=== PATIENT | female | born 1940 ===

== ENCOUNTER 2017-02-24 14:23 | Observation (INO) ==
--- NOTE | 2017-02-24 14:54 | Emergency Department Note ---
Blessing Shen Brittany, am scribing for, and in the presence of, Pierre Odell MD 14:52. Jose R Shen Phillip K, MD, personally performed the services described in this documentation, ascribed by Isaura Funk in my presence, and it is both accurate and complete [id number] . Arrival - Arrival Chief Complaint: Syncope Stated Complaint: syncope ED Nursing Triage Note: Transfer from [facility] ER for further evaluation of syncopal episode. Reports was at dialysis, had syncopal episode while on dialysis. Awake and oriented x 3 at present, speech clear. Denies complaints. Mode of Arrival: Stretcher Limitations: No Limitations Source: Patient, EMS - History of Present Illness HPI Narrative: This is a 77 y/o [place] female, who presents to the ED for further evaluation of a syncopal episode which happened minutes [employer]. She states she was at dialysis when she had a syncopal episode. She states she does not remember what happened. Pt has no complaints of pain at this time in the ED. There are no other complaints/pain in the ED at this time. Pt has a PMHx IDMM, eye problems, THN, renal failure, renal problems, and GERD. Pt has had abdominal surgery, cholecystectomy, appendectomy, and hysterectomy. Pt denies a family medical hx. Pt denies a social hx. Onset (ago): minute(s) (inutes [employer]) Consistency: now resolved Severity: moderate Date of Last Menstrual Period: PM Allergies/Adverse Reactions: Allergies Allergy/AdvReac Type Severity Reaction Status Date / Time No Known Allergies Allergy Verified 02/24/17 14:32 Home Medications: Home Medications Medication Instructions Recorded Confirmed Type Aspirin [Ecotrin] 81 mg PO DAILY 11/02/14 08/04/15 History B-Complex with Vitamin C [Vitamin 1 each PO DAILY 11/02/14 08/04/15 History B-Complex with Vit C] Pantoprazole Tab [Protonix Tab] 40 mg PO DAILY 11/02/14 08/04/15 History Sevelamer Carbonate Tab [Renvela 1,600 mg PO TID W/MEALS 11/02/14 08/06/15 History Tab] Acetaminophen Tab [Tylenol Tab] 650 mg PO Q6H PRN #0 tablet 08/08/15 Rx Alum/Mag/Simeth Max Str Liquid 15 ml PO Q6H PRN #0 udcup 08/08/15 Rx [Mylanta Max Strength Liquid] Bisacodyl Tab [Dulcolax Tab] 5 mg PO DAILY PRN #0 tablet 08/08/15 Rx Docusate Sodium Cap [Colace Cap] 100 mg PO BID capsule 08/08/15 Rx HYDROcodone/ACETAMIN 7.5-325 1 tablet PO Q6H PRN #30 tablet 08/08/15 Rx [[place] 7.5-325] Review of System - Review of System 12 point system: reviewed and no additional remarkable complaints except as stated - Review of System Cardiovascular: Present: syncope Neurological: Absent: headache Medical,Surgical,& Family Hx - Medical History Cardio: History of: Hypertension Neurology: No history of: Seizures HEENT: History of: Eye Problem (cataract extraction right, blind left eye) Endocrine: History of: Diabetes Mellitus (NIDDM) (no medication since dialysis) Renal: History of: Dialysis, Renal Failure (jose alejandro cao, ana cristina) Comment Only: Renal Problems (av graft) Gastrointestinal: History of: GERD - Surgical History Abdominal Surgeries: Surgical HX of: Abdominal Surgery, Appendectomy, Cholecystectomy Reproductive Surgeries: Surgical HX of;: Hysterectomy - Family History Family History: Reports;: Family Diabetes - Social History Smoking Status: Never smoker Frequency of Alcohol Use: None Type of Drug Use: None Exam Vital Signs: Vital Signs Temperature 97.9 F 02/24/17 14:23 Pulse Rate 76 02/24/17 14:23 Respiratory Rate 20 02/24/17 14:23 Blood Pressure 186/71 02/24/17 14:23 O2 Sat by Pulse Oximetry 99 02/24/17 14:23 - General General appearance: alert, in no apparent distress - Head Head exam: Present: atraumatic, normocephalic, normal inspection - Eye Eye exam: Present: normal appearance, PERRL, EOMI. Absent: miosis - ENT ENT exam: Present: normal exam, mucous membranes moist - Neck Neck exam: Present: normal inspection, full ROM, trachea midline. Absent: tenderness - Chest Chest inspection: Present: normal inspection, symmetric chest wall rise. Absent : tenderness - Respiratory Respiratory exam: Present: rales (Bibasilar rales). Absent: respiratory distress - Cardiovascular Cardiovascular exam: Present: regular rate, normal rhythm, normal heart sounds. Absent: murmur, rubs, gallop, clicks, JVD - Abdominal Exam Abdominal exam: Present: soft, normal bowel sounds. Absent: distention, tenderness, guarding, rebound, rigidity - Rectal Exam Rectal exam: Present: deferred - Extremities Exam Extremities exam: Present: normal inspection, full ROM, normal capillary refill. Absent: tenderness, pedal edema, calf tenderness - Back Exam Back exam: Present: normal inspection, full ROM, rashes. Absent: tenderness, muscle spasm - Neurological Exam Neurological exam: Present: alert, oriented X3, CN II-XII intact. Absent: motor sensory deficit - Psychiatric Psychiatric exam: Present: normal affect, normal mood. Absent: depressed, agitated, anxious, flat affect, manic - Skin Skin exam: Present: warm, dry, intact, normal color. Absent: rash, cyanosis, diaphoresis Course Course Narrative: Patient discussed with the hospitalist. Results - Labs Lab Results: I have reviewed the patients labs (Labs reviewed from [facility]) - EKG EKG results: interpreted by JOSE, sinus rhythm (Right bundle branch block at [facility]) - Diagnostic Findings Procedure: CT: report reviewed by me (CT head scan at [facility] and showed no acute intracranial abnormality.) Critical Care Time Critical Care Time: No Disposition Clinical Impression: Syncope, Confusion, End stage renal disease Case discussed with: patient Disposition: Still a Patient Condition: Guarded Additional Instructions: Admit to the hospitalist for monitoring
[2017-02-24] MEDS ORDERED: ACETAMINOPHEN 325 MG TABLET PO PRN (15:21)
[2017-02-24] MEDS ORDERED: ONDANSETRON 4 MG/2 ML VIAL IV PRN (15:21)
--- NOTE | 2017-02-24 15:38 | Hospitalist History & Physical ---
<Ninoska Light - Last Filed: 02/24/17 15:24> Assessment and Plan - Time spent with patient Time spent with patient: Greater than 30 minutes (1) Syncope Status: Acute Assessment and plan: Admit 02/24/17 - monitored bed Echo Carotid dopplers consult renal repeat a.m. labs check BNP in a.m Will discuss with Dr Blanc for further recommendations with care. Current Visit: Yes (2) End stage renal disease Status: Chronic Assessment and plan: 02/24/17 consult Renal (Dr Tom) Current Visit: Yes (3) Hemodialysis access, AV graft Status: Acute Assessment and plan: 02/24/17 Left arm - functioning well. Current Visit: No (4) Diabetes mellitus Status: Chronic Assessment and plan: 02/24/17 Diet controlled - no diabetic medications. check A1c repeat A.M. labs Current Visit: No Qualifiers: Diabetes mellitus type: type 2 Diabetes mellitus complication status: with kidney complications Chronic kidney disease stage: on chronic dialysis Qualified Code(s): E11.22 - Type 2 diabetes mellitus with diabetic chronic kidney disease History of Present Illness Chief complaint: syncope History of present illness: Ms. Brasher is a 77 year old [place] female w/PMHx of chronic renal disease with hemodialysis, Hypertension presented to the ED as a transfer from [facility] ER for further evaluation of syncope while on dialysis and "blacked out" for a few seconds to minutes, she was unsure. She denies chest pain, fever, chills, cough, nausea, or vomiting. She reports this is the second time she has had this happen to her within the past year to year and half. She reports use to take something for diabetes but was taken off and is now diet controlled. She denies smoking, alcohol or drug use. 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 Home medications will be reviewed and reconciliation will follow. Home Medications Medication Instructions Recorded Confirmed Type Pantoprazole Tab [Protonix Tab] 40 mg PO DAILY PRN 11/02/14 02/24/17 History Sevelamer Carbonate Tab [Renvela 1,600 mg PO TID W/MEALS 05/21/15 09/12/17 History Tab] Fosinopril [Monopril] 10 mg PO DAILY 02/24/17 02/24/17 History amLODIPine [Norvasc] 10 mg PO DAILY 02/24/17 02/24/17 History Allergies Allergy/AdvReac Type Severity Reaction Status Date / Time No Known Allergies Allergy Verified 02/24/17 14:32 Medical,Surgical,& Family Hx - Medical History Cardio: History of: Hypertension Neurology: No history of: Seizures HEENT: History of: Eye Problem (cataract extraction right, blind left eye) Endocrine: History of: Diabetes Mellitus (NIDDM) (no medication since dialysis) Renal: History of: Dialysis, Renal Failure (tues, thur, sat) Comment Only: Renal Problems (av graft) Gastrointestinal: History of: GERD - Surgical History Abdominal Surgeries: Surgical HX of: Abdominal Surgery, Appendectomy, Cholecystectomy Reproductive Surgeries: Surgical HX of;: Hysterectomy - Family History Family History: Reports;: Family Diabetes - Social History Smoking Status: Never smoker Frequency of Alcohol Use: None Type of Drug Use: None Lives With:: Children (Her son and grandson live with her) Functional capacity: uses cane/walker 12 point system: reviewed and no additional remarkable complaints except as stated - Constitutional Constitutional: Absent: chills, fever(s), frequent falls - Cardiovascular Cardiovascular: Absent: chest pain at rest, chest pain with activity, dyspnea, dyspnea on exertion - Respiratory Respiratory: Absent: cough, dyspnea Exam - Constitutional Vitals: Period Temp Pulse Resp BP Sys/Obando Pulse Ox Last 24 Hr 97.9 F 76 20 186/71 99 General appearance: normal weight, no acute distress - Head Head exam: Present: normal inspection - Eye Eye exam: Present: EOMI Pupils: Present: LACY - Neck Neck exam: Present: normal inspection - Respiratory Respiratory exam: Present: clear to auscultation bilaterally. Absent: rhonchi, stridor, wheezes - Cardiovascular Cardiovascular exam: Present: regular rate and rhythm - GI/Abdominal GI/Abdominal exam: Present: normal bowel sounds, soft. Absent: tenderness, rebound - Extremities Exam Extremities exam: Present: normal inspection, full ROM, edema (trace to 1+) - Neurological Exam Neurological exam: Present: alert, oriented X3, CN II-XII intact - Psychiatric Psychiatric exam: Present: normal affect, normal mood. Absent: agitated, anxious - Skin Skin exam: Present: normal color, warm, dry Results - Labs Lab Results: I have reviewed the past 24 hour labs Labs: Labs and CT of head performed at [facility] ER and was scanned into system under reports: HEAD CT Findings: Moderate area of malacia/gliosis in right parietal lobe is most compatible with old infarction; prominent low density in the bilateral periventricular white matter which may represent chronic small vessel ischemic disease; there are lacunar infarctions in the basal ganglia which may be old; the possibility of superimposed acute infarctions cannot be excluded; probable prominent chronic ischemic changes. LABS: BUN 29 Creatinine 3.7; K 3.6, Troponin negative. WBC 7.4, H&H 12.2 & 37.6. EKG: NSR. <Abel Blanc - Last Filed: 02/25/17 07:08> History of Present Illness History of present illness: Ms. Brasher is a 77 year old female who is being admitted to the hospital after experiencing an episode of syncope during hemodialysis. I have interviewed and examined the patient and reviewed all the available laboratory and radiographic test results. I agree with the assessment and plans of Ninoska Light TRAIN CONTROL ELECTRONIC TECHNICIAN. The patient will be admitted to the hospital for further evaluation and treatment. Neurology has been consulted. Exam - Constitutional Vitals: Period Temp Pulse Resp BP Sys/Obando Pulse Ox Last 24 Hr 97.9 F-99.5 F 63-81 14-20 152-197/66-77 95-100 Results - Labs CBC & BMP: 02/25/17 02:58 02/25/17 02:58
--- NOTE | 2017-02-24 16:52 | Ultrasound Report ---
Exam:US carotid duplex BI Date:02/24/2017 3:52 PM Indication: Syncope Color Doppler, wave form analysis, and grayscale analysis of the cervical carotid arteries was performed. There is mild partially calcified plaque in the left carotid bulb. Waveform analysis shows proper directional flow of the cervical carotid arteries. There is antegrade flow in either vertebral artery. There is no increased peak systolic velocity in the common or internal carotid arteries bilaterally. Impression: There is 0-15% diameter reduction narrowing of the right and 16-49% diameter reduction narrowing of the left internal carotid artery using indirect NASCET criteria. No hemodynamically significant internal carotid artery stenosis is identified. Right Side Flow velocities centimeters per second Common carotid artery:46.8 Proximal ICA:37.7 Distal ICA:83.6 External carotid artery:139.2 Vertebral artery:62.5 ICA/CCA ratio:1.8 Measurements in millimeters Distal ICA: 4.1 Left SIde Flow velocities centimeters per second Common carotid artery 57.7 Proximal ICA:41.3 Distal ICA:43.9 External carotid artery:77.5 Vertebral artery:33.1 ICA/CCA ratio:0.8 Measurements in millimeters Distal ICA: 4.5 Today studies were performed utilizing indirect NASCET criteria PROCEDURE INTERPRETED AT [facility] DEPARTMENT OF RADIOLOGY Final Report Signed by: Dr. Vivian Guerrero
--- NOTE | 2017-02-24 21:00 | ECHO Report ---
Shannan Brasher Exam Date: 02/24/2017 16:04 Referring Physician: Technologist: monie Smith ARDMS, RVT Age: 77 Ht (in): 62 Wt (lb): 99 Gender: F Exam Location: [facility] Echo Indications: Syncope and collapse, End stage renal disease, DM, Hemodialysis AV graft BP: 161 / 71 HR: 66 Rhythm: Sinus Technical Quality: IMPRESSIONS Normal left ventricular cavity size. Mild concentric left ventricular hypertrophy. Left ventricular ejection fraction is estimated at 60%. Grade 2 diastolic dysfunction. Mild left atrial enlargement. Mildly thickened mitral valve, with trace insufficiency, without stenosis. Mild aortic valve sclerosis, without stenosis, with trace regurgitation. MEASUREMENTS (Male / Female) Normal Values 2D ECHO LV Diastolic Diameter PLAX 4.7 cm 4.2 - 5.9 / 3.9 - 5.3 cm LV Systolic Diameter PLAX 3.1 cm LV Fractional Shortening PLAX 32.4 % IVS Diastolic Thickness 1.0 cm 0.6 - 1.0 / 0.6 - 0.9 cm LVPW Diastolic Thickness 1.3 cm 0.6 - 1.0 / 0.6 - 0.9 cm RV Internal Dim ED PLAX 2.2 cm Aortic Root Diameter 2.1 cm LA Systolic Diameter LX 3.6 cm 3.0 - 4.0 / 2.7 - 3.8 cm FINDINGS Left Ventricle Normal left ventricular cavity size. Mild concentric left ventricular hypertrophy. Left ventricular ejection fraction is estimated at 60%. Grade 2 diastolic dysfunction. Right Ventricle The right ventricle is normal in size and function. Right Atrium The right atrium is normal in size. Left Atrium The left atrium was mildly dilated. Mitral Valve Mildly thickened mitral valve, with trace insufficiency, without stenosis. Aortic Valve Mild aortic valve sclerosis, without stenosis, with trace regurgitation. Tricuspid Valve Morphologically normal tricuspid valve without significant stenosis or regurgitation. Pulmonary artery systolic pressure is normal. Pulmonic Valve Morphologically normal pulmonic valve without significant stenosis. There is no pulmonic regurgitation. Pericardium Normal pericardium without effusion. Aorta Normal ascending aorta dimension. Garrett Castro (Electronically Signed) Final Date: 24 February 2017 20:59
[2017-02-25 03:56] LABS: Basophils # 0.1 10*3/uL (0.0-0.2); Basophils % 1.2 % (0.0-0.8); Eosinophils # 0.2 10*3/uL (0.0-0.87); Eosinophils % 5.7 % (0.00-10.9); Hematocrit 30.8 VOL% (35.7-47.0); Hemoglobin 10.3 GM/DL (12.0-16.0); Lymphocytes # 1.3 10*3/uL (1.4-4.0); Lymphocytes % 30.2 % (21.3-54.2); Mean Corpuscular HGB Conc 33.4 GM/DL (32-36); Mean Corpuscular Hemoglobin 32 PG (27-34); Mean Corpuscular Volume 96.6 FL (87-102); Mean Platelet Volume 10.7 FL (9.6-12.0); Monocytes # 0.4 10*3/uL (0.11-0.8); Monocytes % 9.3 % (1.7-12.7); Neutrophils # 2.3 10*3/uL (1.4-7.4); Neutrophils % 53.6 % (38.7-73.9); Platelet Count 121 T/CUMM (130-400); Red Blood Count 3.19 MC/CUMM (3.8-5.5); Red Cell Distribution Width 14.5 % (9.3-17.3); White Blood Count 4.2 T/CUMM (4-12)
[2017-02-25 04:40] LABS: Calcium 8.4 MG/DL (8.5-10.1); Magnesium 2.2 MG/DL (1.8-2.4)
[2017-02-25 05:18] LABS: Risk Ratio 2.26; VLDL CHOLESTEROL 13.6 MG/DL
[2017-02-25] MEDS: PANTOPRAZOLE 40 MG TABLET PO SCH (10:14)
--- NOTE | 2017-02-25 11:54 | Hospitalist Progress Note ---
Assessment and Plan (1) ESRD on hemodialysis Status: Acute Assessment and plan: She continues her regularly scheduled hemodialysis under the management of nephrology. Current Visit: Yes (2) Syncope Status: Acute Assessment and plan: Telemetry monitoring is demonstrated no arrhythmias. She is scheduled to undergo an MRI of the head, carotid duplex Doppler exam, and echocardiogram today. Current Visit: Yes Hospitalist: Subjective Interval history: Patient is doing well today. She has experienced no recurrent episodes of loss of consciousness. She is not experiencing chest pain or shortness of breath. She is being seen in consultation by nephrology for management of her hemodialysis. Exam - Constitutional Vitals: Period Temp Pulse Resp BP Sys/Obando Pulse Ox Last 24 Hr 97.9 F-99.5 F 63-81 14-20 152-197/66-77 94-100 General appearance: no acute distress - Head Head exam: Present: normal inspection - Neck Neck exam: Present: normal inspection - Respiratory Respiratory exam: Present: clear to auscultation bilaterally - Cardiovascular Cardiovascular exam: Present: regular rate and rhythm - GI/Abdominal GI/Abdominal exam: Present: normal bowel sounds, soft, other (Nontender with no palpable masses or hepatosplenomegaly.) - Extremities Exam Extremities exam: Present: normal inspection - Skin Skin exam: Present: normal color, warm, intact Results - Labs CBC & BMP: 02/25/17 02:58 02/25/17 02:58
[2017-02-25] MEDS ORDERED: hydrALAZINE 20 MG/1 ML VIAL IV PRN (12:57)
[2017-02-25] MEDS ORDERED: PANTOPRAZOLE 40 MG TABLET PO PRN (12:58)
--- NOTE | 2017-02-25 13:31 | Nephrology Consult Note ---
History of Present Illness Chief complaint: Admitted for syncope on dialysis. Referred for ESRD on [facility]. History of present illness: Ms. Brasher is a 77 year old female admitted for syncope on dialysis. This is the third time this has happened per pt. She states she is back to her baseline now. Denies SOB/pain. She has ESRD on chronic dialysis TTSa via left forearm graft at [facility]. EDW 42.5kg. Home Medications Medication Instructions Recorded Confirmed Type Pantoprazole Tab [Protonix Tab] 40 mg PO DAILY PRN 11/02/14 02/24/17 History Sevelamer Carbonate Tab [Renvela 1,600 mg PO TID W/MEALS 11/02/14 02/24/17 History Tab] Fosinopril [Monopril] 10 mg PO DAILY 02/24/17 02/24/17 History amLODIPine [Norvasc] 10 mg PO DAILY 02/24/17 02/24/17 History Allergies Allergy/AdvReac Type Severity Reaction Status Date / Time No Known Allergies Allergy Verified 02/24/17 14:32 Medical,Surgical,& Family Hx - Medical History Cardio: History of: Hypertension Neurology: No history of: Seizures HEENT: History of: Eye Problem (cataract extraction right, blind left eye) Endocrine: History of: Diabetes Mellitus (NIDDM) (no medication since dialysis) Renal: History of: Dialysis, Renal Failure (kiley, jose alejandro, sat) Comment Only: Renal Problems (left av graft) Gastrointestinal: History of: GERD - Surgical History Abdominal Surgeries: Surgical HX of: Abdominal Surgery, Appendectomy, Cholecystectomy Reproductive Surgeries: Surgical HX of;: Hysterectomy - Family History Family History: Reports;: Family Diabetes - Social History Smoking Status: Never smoker Frequency of Alcohol Use: None Type of Drug Use: None Exam - Vital Signs Vital signs: Period Temp Pulse Resp BP Sys/Obando Pulse Ox Last 24 Hr 96.4 F-99.5 F 63-81 14-20 152-197/66-84 92-100 - General Appearance General appearance: well-developed, chronically ill EENT: ATNC, PERRL Neck: no JVD, no thyromegaly Respiratory: no kyphosis, clear Cardiology: no murmurs, no rub, no edema Gastrointestinal: normoactive bowel sounds, no tenderness Integumentary: no rash, warm and dry Neurologic: no focal deficit, no asterixis, alert and oriented x3 Musculoskeletal: no deformities, no erythema Psychiatric: mood/affect appropriate, cooperative Results - Labs CBC & BMP: 02/25/17 02:58 02/25/17 02:58 Assessment and Plan (1) ESRD on hemodialysis Problem details: No acute indication for HD at this time. Status: Acute Assessment and plan: Next scheduled routine CHD tomorrow. Current Visit: Yes
--- NOTE | 2017-02-25 15:47 | Magnetic Resonance Report ---
MRI brain without contrast Indication: Cerebrovascular occlusion Comparison: None available Technique: Axial sagittal and coronal imaging of the brain is performed without contrast. T1, T2, FLAIR and diffusion weighted sequences are performed. Findings: No evidence of restricted diffusion seen. No evidence of intracranial hemorrhage, mass, mass effect or midline shift is seen. There is moderate to severe diffuse cerebral atrophy. There are areas of white matter T2 signal hyperintensity in both cerebral hemispheres periventricular and subcortical in location. This likely represents a chronic microvascular disease. More focal volume loss is seen in the medial right occipital lobe suggesting previous infarct. Remaining brain parenchyma has normal signal and differentiation. The ventricles and cisterns are appropriate in caliber. Posterior fossa, mid brain and pituitary gland appear within normal limits. No evidence of cranial or skull base abnormality seen. Impression: No evidence of acute infarct or other acute process demonstrated PROCEDURE INTERPRETED AT [facility] DEPARTMENT OF RADIOLOGY Final Report Signed by: Dr. Ian Newman
--- NOTE | 2017-02-25 17:05 | Neurology Consult Note ---
History of Present Illness History of present illness: 77 years old lady with past medical history significant for ESRD on hemodialysis, diabetes admitted the hospital after she had a syncopal episode. Patient reported that she has has had so far 3 episodes where she passed out during dialysis. She was out for less than a minute and regained consciousness. She reported that she feels like her body is cramping up. No generalized tonic-clonic activity reported. No tongue biting or urinary incontinence reported. MRI of the brain is unremarkable. Home Medications Medication Instructions Recorded Confirmed Type Pantoprazole Tab [Protonix Tab] 40 mg PO DAILY PRN 11/02/14 02/24/17 History Sevelamer Carbonate Tab [Renvela 1,600 mg PO TID W/MEALS 11/02/14 02/24/17 History Tab] Fosinopril [Monopril] 10 mg PO DAILY 02/24/17 02/24/17 History amLODIPine [Norvasc] 10 mg PO DAILY 02/24/17 02/24/17 History Allergies Allergy/AdvReac Type Severity Reaction Status Date / Time No Known Allergies Allergy Verified 02/24/17 14:32 12 point system: reviewed and no additional remarkable complaints except as stated Medical,Surgical,& Family Hx - Medical History Cardio: History of: Hypertension Neurology: No history of: Seizures HEENT: History of: Eye Problem (cataract extraction right, blind left eye) Endocrine: History of: Diabetes Mellitus (NIDDM) (no medication since dialysis) Renal: History of: Dialysis, Renal Failure (tues, thur, sat) Comment Only: Renal Problems (left av graft) Gastrointestinal: History of: GERD - Surgical History Abdominal Surgeries: Surgical HX of: Abdominal Surgery, Appendectomy, Cholecystectomy Reproductive Surgeries: Surgical HX of;: Hysterectomy - Family History Family History: Reports;: Family Diabetes - Social History Smoking Status: Never smoker Frequency of Alcohol Use: None Type of Drug Use: None Exam - Constitutional Vitals: Period Temp Pulse Resp BP Sys/Obando Pulse Ox Last 24 Hr 96.4 F-99.5 F 63-81 16-20 152-188/66-84 92-99 Exam: GENERAL: Patient is in no acute distress. NECK: Neck is supple. There is no JVD. No carotid bruits present. No thyroid masses. CVS: First and second heart sounds are normal. There is no S3 present. Regular rate and rhythm. RESPIRATORY: Lungs are clear to auscultation without any rales or rhonchi. ABDOMEN: Soft and non-tender. Bowel sounds are present. There is no hepatosplenomegaly. EXT: There is no palpable edema. Peripheral pulses are present. Skin: No rashes Central Nervous system: General: Alert, awake and Oriented x 3 Speech: Fluent Comprehension: Intact and normal Facial expressions: Normal Cranial Nerves: CN1/Olfactory: Normal CN II/ Optic: Normal, Visual Lees unreliable CN III, and : LACY & EOMI CN V: Normal & intact CN VII: face is symmetric CNVIII: Normal CN XI/X/XI/XII: Intact and Normal Motor: Bulk and Tone is normal. Strength in the right 4/5 Strength in the left 4/5 Sensory: Decreased for all the modalities of PP, LT and temp sense in the stockings to Reflexes: 1+ and symmetrical Cerebellar function: Normal finger to nose and heel to hooks testing. Toes: Equivocal Gait: Not tested at this Results - Labs CBC & BMP: 02/25/17 02:58 02/25/17 02:58 Assessment and Plan (1) Syncope Status: Acute Assessment and plan: This could very well be due to hemodialysis induced hypotension leading to syncope. Other differential would include seizure related to uremia. EEG No AEDs indicated at this time Thank you for the consult Current Visit: Yes
[2017-02-25] MEDS: SEVELAMER CARBONATE 800 MG TABLET PO SCH (17:56)
[2017-02-26 07:58] VITALS: BP 144/95
[2017-02-26] MEDS: PANTOPRAZOLE 40 MG TABLET PO SCH (08:52)
[2017-02-26] MEDS: SEVELAMER CARBONATE 800 MG TABLET PO SCH ×2 (08:52→12:31)
[2017-02-26] MEDS ORDERED: FOSINOPRIL 10 MG TABLET PO SCH (09:00)
[2017-02-26] MEDS ORDERED: amLODIPine 10 MG TABLET PO SCH (09:00)
--- NOTE | 2017-02-26 09:44 | Dialysis Note ---
Dialysis Note - Dialysis Note Patient seen on dialysis. She is tolerating procedure. Blood pressure 144/95. Cardiovascular regular rate. Lungs clear to auscultation.
--- NOTE | 2017-02-26 10:13 | Discharge Summary ---
Hospital Course - Hospital Course Hospital Course: Ms. Brasher is a 77 year old [place] female w/PMHx of chronic renal disease with hemodialysis, Hypertension presented to the ED as a transfer from [facility] ER for further evaluation of syncope while on dialysis and "blacked out" for a few seconds to minutes, she was unsure. She denies chest pain, fever, chills, cough, nausea, or vomiting. She reports this is the second time she has had this happen to her within the past year to year and half. She reports use to take something for diabetes but was taken off and is now diet controlled. Patient was admitted to the hospital the diagnosis of syncope. She underwent an MRI of the brain demonstrating no acute abnormalities. She underwent a carotid duplex Doppler examination demonstrating no significant obstructions. She underwent an echocardiogram demonstrating normal left ventricular systolic function with LVEF 60%. Telemetry demonstrated sinus rhythm with no arrhythmias. She was seen in consultation by Dr. Solis of neurology. It was his opinion there is syncope was due to hemodialysis associated hypotension. She did well in the hospital experiencing no recurrent such events. At the time of her discharge she was comfortable with no complaints. Diagnosis - Discharge Diagnosis (1) ESRD on hemodialysis Status: Chronic (2) Syncope Status: Acute Discharge Plan - Discharge Data Disposition: Disch To Home/Self Care Condition at Discharge: Stable Discharge Diet: advance to your usual diet Activity: resume usual activities as tolerated - Discharge Medications Continue Pantoprazole Tab [Protonix Tab] 40 mg PO DAILY PRN PRN Reason: Reflux Sevelamer Carbonate Tab [Renvela Tab] 1,600 mg PO TID W/MEALS amLODIPine [Norvasc] 10 mg PO DAILY Fosinopril [Monopril] 10 mg PO DAILY - Follow Up or Referral - Forms/Instructions Exam - Constitutional Vitals: Period Temp Pulse Resp BP Sys/Obando Pulse Ox Last 24 Hr 96.4 F-99.1 F 66-78 16-20 144-188/63-95 92-95 Discharge Results Procedures and tests throughout hospitalization: Pending Orders 02/26/17 04:00 NE EEG adult awake/drowsy IN AM DS: Provider Date of admission: 02/24/17 14:58 Primary care physician: Edi Henning MD Attending physician on admission: Abel Blanc Consults: 02/24/17 15:23 Consult to Case Mgmt/Social Srvs [CONS] Routine Reason for Case Mgmt/Social Srvs: Discharge Planning 02/24/17 16:18 Consult to Physician [CONS] Routine Comment: Consulting Provider: Mushtaq Solis When should Consulting Provider be notified: Now Person Notified: Ileana Date Notified: 02/25/17 Time Notified: 12:00 Consult Notification Comment: 02/24/17 16:20 Consult to Physician [CONS] Routine Comment: Consulting Provider: Nikita Bob When should Consulting Provider be notified: Now Person Notified: Kam Date Notified: 02/25/17 Time Notified: 08:45 Consult Notification Comment: patient of Dr Tom, chronic hemodialysis was at dialysis today, when she had a syncopal episode classification clerk to see pt Discharging clinician: Abel Blanc
== END 2017-02-26 16:15 | disposition home or self-care (01) ==
LOC: EDBD → EDUNIT# → N.EDINP 14:23 → N.ED 14:23 → SUATTDRO 14:58 → N.EDINP 17:43 → N.TELEN 17:44

== ENCOUNTER 2017-03-15 19:17 | Inpatient (IN) ==
--- NOTE | 2017-03-15 20:27 | Emergency Department Note ---
Arrival - Arrival Chief Complaint: Extremity Problem ED Nursing Triage Note: Pt arrives via ems from [facility] for ortho eval. Pt fell at home and was seen at [facility]. Report given was that pt has a Left pubic ramis fracture. At time of triage pt denies pain unless moving left ext. Mode of Arrival: Stretcher Time Seen by Provider: 03/15/17 20:15 - History of Present Illness HPI Narrative: This is a 77-year-old female of [facility] descent with a history of chronic renal failure on hemodialysis Thursday, hypertension who was transferred from [facility] February 26, 2017 for syncope where a MRI scan of the brain showed no abnormalities, carotid duplex Doppler study was normal, echocardiogram and revealed left ventricular ejection fraction of 60%, no arrhythmias were found,, the patient was evaluated by neurology and was discharged with the theory that her syncope was due to a hypotensive event related to hemodialysis. She returns today from [facility] after falling and injuring her pelvis. X-ray revealed an acute mildly lead displaced fracture of the left inferior pubic ramus and possibly of the left superior pubic ramus. Date of Last Menstrual Period: hyster Allergies/Adverse Reactions: Allergies Allergy/AdvReac Type Severity Reaction Status Date / Time No Known Allergies Allergy Verified 02/24/17 14:32 Home Medications: Home Medications Medication Instructions Recorded Confirmed Type Pantoprazole Tab [Protonix Tab] 40 mg PO DAILY PRN 11/02/14 03/15/17 History amLODIPine [Norvasc] 10 mg PO DAILY 02/24/17 03/15/17 History Fosinopril [Monopril] 10 mg PO DAILY 03/15/17 03/15/17 History Latanoprost 0.005% Oph Soln 1 drop RIGHT EYE BEDTIME 03/15/17 03/15/17 History [Xalatan 0.005% Oph Soln] Sevelamer Carbonate Tab [Renvela 1,600 mg PO TID W/MEALS 03/15/17 03/15/17 History Tab] Sevelamer Carbonate Tab [Renvela 800 mg PO WITH SNACKS 03/15/17 03/15/17 History Tab] Review of System - Review of System Constitutional: Absent: fever, night sweats, weakness Eyes: Absent: redness Head/Ears/Nose/Throat: Absent: epistaxis, nasal drainage Respiratory: Absent: respiratory distress, wheezing Cardiovascular: Absent: dyspnea on exertion, orthopnea Gastrointestinal: Absent: diarrhea, constipation, hematemesis, melena Genitourinary female: Absent: dysuria, urgency Musculoskeletal: Absent: joint swelling, lower back pain, neck pain Skin: Absent: change in color, change in hair/nails, pruritus Neurological: Absent: numbness, paresthesias, confusion Psychiatric: Absent: anxiety, depression Endocrine: Absent: heat intolerance, polydipsia, polyuria Hematological/Lymphatic: Absent: easy bruising, lymphadenopathy Allergic/Immunologic: Absent: urticaria, itchy eyes Medical,Surgical,& Family Hx - Medical History Cardio: History of: Hypertension Neurology: No history of: Seizures HEENT: History of: Eye Problem (cataract extraction right, blind left eye) Endocrine: History of: Diabetes Mellitus (NIDDM) (no medication since dialysis) Renal: History of: Dialysis, Renal Failure (tues, thur, sat) Comment Only: Renal Problems (left av graft) Gastrointestinal: History of: GERD - Surgical History Abdominal Surgeries: Surgical HX of: Abdominal Surgery, Appendectomy, Cholecystectomy Reproductive Surgeries: Surgical HX of;: Hysterectomy - Family History Family History: Reports;: Family Diabetes - Social History Smoking Status: Never smoker Frequency of Alcohol Use: None Type of Drug Use: None Exam Vital Signs: Vital Signs Temperature 98.7 F 03/15/17 19:17 Pulse Rate 86 03/15/17 19:17 Respiratory Rate 16 03/15/17 19:17 Blood Pressure 176/75 03/15/17 19:17 O2 Sat by Pulse Oximetry 95 03/15/17 19:17 - Head Head exam: Present: atraumatic, normocephalic - Eye Eye exam: Present: PERRL, EOMI - ENT ENT exam: Present: normal exam, normal oropharynx - Neck Neck exam: Present: normal inspection, full ROM - Chest Chest inspection: Present: normal inspection - Respiratory Respiratory exam: Present: normal lung sounds bilaterally - Cardiovascular Cardiovascular exam: Present: regular rate, normal rhythm - Abdominal Exam Abdominal exam: Present: soft, normal bowel sounds - Extremities Exam Extremities exam: Present: other (Tenderness in the pelvic area on movement of the left hip) - Back Exam Back exam: Present: normal inspection - Neurological Exam Neurological exam: Present: alert, oriented X3, CN II-XII intact - Psychiatric Psychiatric exam: Present: normal affect, normal mood - Skin Skin exam: Present: warm, dry, intact Course Course Narrative: The case was discussed with the hospitalist who agreed to admit the patient for placement in the rehab facility to help with ambulation and to receive dialysis during the time that they are helping her to learn to walk with her inferior pubic ramus fracture on the left side. Disposition Clinical Impression: Fracture of left inferior pubic ramus, Ambulatory dysfunction, Chronic renal failure Disposition: Still a Patient
[2017-03-15] MEDS ORDERED: LABETALOL 20 MG/4 ML SYRINGE IV STA (20:51)
[2017-03-15] MEDS ORDERED: MORPHINE 2 MG/1 ML SYRINGE IV PRN (21:18)
[2017-03-15] MEDS ORDERED: DEXTROSE 50% 25 GM/50 ML SYRINGE IV PRN (21:18)
[2017-03-15] MEDS ORDERED: GLUCAGON 1 MG VIAL IM PRN (21:18)
[2017-03-15] MEDS ORDERED: ONDANSETRON 4 MG/2 ML VIAL IV PRN (21:18)
[2017-03-15] MEDS ORDERED: ACETAMINOPHEN 325 MG TABLET PO PRN (21:18)
[2017-03-15] MEDS ORDERED: SEVELAMER CARBONATE 800 MG TABLET PO SCH (22:00)
--- NOTE | 2017-03-15 22:10 | Hospitalist History & Physical ---
Assessment and Plan - Time spent with patient Time spent with patient: Greater than 30 minutes (1) Pelvic fracture Status: Acute Assessment and plan: Admit to hospitalist services. Consult PT, Nephrology, and Orthopedics. Pain control with Tylenol, [place], and Morphine PRN. Fall Precautions. Current Visit: Yes (2) Hypertension Status: Acute Assessment and plan: Continue home medications. BMP in a.m. Monitor. Current Visit: Yes (3) ESRD on hemodialysis Problem details: No acute indication for HD at this time. Status: Chronic Assessment and plan: Dialyzes Thursday, , and Thursday. Continue home medications. Consult Nephrology. Current Visit: No (4) Diabetes mellitus Status: Chronic Assessment and plan: Has not needed medications since starting dialysis. Controls with diet only. ADA diet ordered. Accuchecks and SSI ACHS. A1c in a.m. Current Visit: No Qualifiers: Diabetes mellitus type: type 2 Diabetes mellitus complication status: with kidney complications Chronic kidney disease stage: on chronic dialysis Qualified Code(s): E11.22 - Type 2 diabetes mellitus with diabetic chronic kidney disease (5) DVT prophylaxis Status: Acute Assessment and plan: Bilateral SCDs due to ESRD and thrombocytopenia. Current Visit: Yes History of Present Illness Chief complaint: Pelvic Fracture History of present illness: Ms. Brasher is a 77 year old female with a past medical history of ESRD on hemodialysis, hypertension, diabetes, and anemia who was transferred to the ED of [facility] from [place] with complaints of a fall that occurred around 10:00 today in which she sustained a pelvic fracture. CT obtained at [place] showed an "acute mildly displaced fracture of the left inferior pubic ramus and questionable nondisplaced acute fracture of the left superior pubic ramus." Ms. Brasher reports that she was standing in her kitchen when her legs felt weak, causing her to fall. After the fall, she was unable to get up or walk. She reports that she has had similar episodes of leg weakness causing falls several times before. She reports that she dialyzes on Thursday, , and Thursday. Significant labs performed at [place] included H/H 11.5/35.8, MCV 98.9, Platelet 127, and Creatinine 5.6. Currently, she is Hospitalist services were consulted, and the patient will be admitted for further evaluation and treatment. Home medications were reviewed and reconciled. This patient is a full code. Home Medications Medication Instructions Recorded Confirmed Type Pantoprazole Tab [Protonix Tab] 40 mg PO DAILY PRN 11/02/14 03/15/17 History amLODIPine [Norvasc] 10 mg PO DAILY 02/24/17 03/15/17 History Fosinopril [Monopril] 10 mg PO DAILY 03/15/17 03/15/17 History Latanoprost 0.005% Oph Soln 1 drop RIGHT EYE BEDTIME 03/15/17 03/15/17 History [Xalatan 0.005% Oph Soln] Sevelamer Carbonate Tab [Renvela 1,600 mg PO TID W/MEALS 03/15/17 03/15/17 History Tab] Sevelamer Carbonate Tab [Renvela 800 mg PO WITH SNACKS 03/15/17 03/15/17 History Tab] Allergies Allergy/AdvReac Type Severity Reaction Status Date / Time No Known Allergies Allergy Verified 02/24/17 14:32 Medical,Surgical,& Family Hx - Medical History Cardio: History of: Hypertension HEENT: History of: Eye Problem (cataract extraction right, blind left eye) Endocrine: History of: Diabetes Mellitus (NIDDM) (no medication since dialysis) Renal: History of: Dialysis, Renal Failure (kiley, jose alejandro, ana cristina) Comment Only: Renal Problems (left av graft) Gastrointestinal: History of: GERD - Surgical History Abdominal Surgeries: Surgical HX of: Abdominal Surgery, Appendectomy, Cholecystectomy Reproductive Surgeries: Surgical HX of;: Section, Hysterectomy - Family History Family History: Reports;: Family Diabetes - Social History Smoking Status: Never smoker Have you smoked in the last 12 months: No Frequency of Alcohol Use: None Type of Drug Use: None Marital Status: Lives With:: Children (Son and Grandson) Functional capacity: uses cane/walker (uses a cane outside the house; nothing inside the house) 12 point system: reviewed and no additional remarkable complaints except as stated - Constitutional Constitutional: Absent: chills, fever(s), headache(s), malaise, weakness - EENT Eyes: Absent: blurry vision, diplopia, loss of vision Ears: Absent: decreased hearing, ear discharge, ear pain Nose, mouth and throat: Absent: epistaxis, headache(s), nasal congestion, sore throat - Cardiovascular Cardiovascular: Absent: chest pain at rest, chest pain with activity, dyspnea, edema, orthopnea, palpitations - Respiratory Respiratory: Absent: cough, dyspnea, wheezing - Gastrointestinal Gastrointestinal: Absent: abdominal pain, constipation, diarrhea, nausea, vomiting - Genitourinary Genitourinary: Absent: dysuria, flank pain, urinary frequency - Musculoskeletal Musculoskeletal: Present: muscle weakness, other (pelvic pain with movement). Absent: arthralgias, joint swelling, myalgias - Neurological Neurological: Absent: confusion, dizziness, numbness, paresthesias, syncope - Psychiatric Psychiatric: Absent: anxiety, depression - Endocrine Endocrine: Absent: cold intolerance, polydipsia, polyphagia, polyuria - Hematologic/Lymphatic Hematologic/Lymphatic: Absent: easy bleeding, easy bruising Exam - Constitutional Vitals: Period Temp Pulse Resp BP Sys/Obando Pulse Ox Last 24 Hr 98.7 F-98.7 F 75-86 13-16 106-176/61-75 95-100 Exam: Constitutional System: Afebrile. Awake, alert, and oriented x 3. No distress. No tremulousness. Head: Normocephalic, atraumatic. Ears, Nose and Throat System: No pain or tenderness. No epistaxis or discharge Eyes System: Pupils equal, round, and reactive. Extraocular muscles intact. Neck: Supple, without adenopathy, No jugular venous distention. No thyromegaly, neck mass, or prior surgery apparent. Respiratory System: Chest clear to auscultation. Cardiovascular System: Heart with regular rate and rhythm. Systolic murmur noted. GI System: Abdomen soft, nontender. Normo active bowel sounds present. Musculoskeletal System: Limbs with no pedal edema. Full distal pulses. Normal capillary refill. Pelvic pain with any movement of BLEs. Neurological System: No discernable sensory deficit. No aphasia Psychiatric System: Conversation is rational Results - Labs Lab Results: I have reviewed the past 24 hour labs - Diagnostic Findings Procedure: CT: report reviewed by me Quality Measures - VTE Contraindication to Pharmacological VTE Prophylaxis: Thrombocytopenia
[2017-03-15] MEDS ORDERED: INFLUENZA VIRUS VACCINE 0.5 ML SYRINGE IM ONE (22:39)
[2017-03-15] MEDS ORDERED: PNEUMOCOCCAL VACCINE (13 VALENT) 0.5 ML SYRINGE IM ONE (22:39)
[2017-03-16] MEDS: LATANOPROST 0.005% OPH SOLN 2.5 ML BOTTLE RIGHT EYE SCH ×2 (00:05→20:28)
[2017-03-16 06:55] LABS: Calcium 8.4 MG/DL (8.5-10.1); Magnesium 2.1 MG/DL (1.8-2.4); Osmolality,Calculated 293.4 MOS/KG (273-304); Potassium 4.7 MMOL/L (3.5-5.1)
[2017-03-16] MEDS: INSULIN LISPRO 100 UNIT/ML SUBCUT SCH ×4 (08:06→20:50)
[2017-03-16] MEDS: SEVELAMER CARBONATE 800 MG TABLET PO SCH ×3 (09:46→16:50)
[2017-03-16] MEDS: amLODIPine 10 MG TABLET PO SCH (09:53)
[2017-03-16] MEDS: PANTOPRAZOLE 40 MG TABLET PO SCH (09:54)
[2017-03-16] MEDS: FOSINOPRIL 10 MG TABLET PO SCH (09:54)
--- NOTE | 2017-03-16 10:40 | Orthopedic Consult Note ---
History of Present Illness Chief complaint: Left hip pain History of present illness: Ms. Brasher is a 77 year old female fell at home Thursday after getting caught up in her rocker. Because of persistent groin pain and difficulty ambulating [facility]. She was found to have left superior and inferior pubic rami fractures. She has been transferred here for definitive care. She denies any other injury. Home Medications Medication Instructions Recorded Confirmed Type Pantoprazole Tab [Protonix Tab] 40 mg PO DAILY PRN 11/02/14 03/15/17 History amLODIPine [Norvasc] 10 mg PO DAILY 02/24/17 03/15/17 History Latanoprost 0.005% Oph Soln 1 drop RIGHT EYE BEDTIME 03/15/17 03/15/17 History [Xalatan 0.005% Oph Soln] Sevelamer Carbonate Tab [Renvela 1,600 mg PO TID W/MEALS 03/15/17 03/15/17 History Tab] Sevelamer Carbonate Tab [Renvela 800 mg PO WITH SNACKS 03/15/17 03/15/17 History Tab] Allergies Allergy/AdvReac Type Severity Reaction Status Date / Time No Known Allergies Allergy Verified 02/24/17 14:32 12 point system: reviewed and no additional remarkable complaints except as stated Medical,Surgical,& Family Hx - Medical History Cardio: History of: Hypertension Neurology: No history of: Seizures HEENT: History of: Eye Problem (cataract extraction right, blind left eye) Endocrine: History of: Diabetes Mellitus (NIDDM) (no medication since dialysis) Renal: History of: Dialysis, Renal Failure (tues, thannabelle, sat) Comment Only: Renal Problems (left av graft) Gastrointestinal: History of: GERD - Surgical History Abdominal Surgeries: Surgical HX of: Abdominal Surgery, Appendectomy, Cholecystectomy Reproductive Surgeries: Surgical HX of;: Section, Hysterectomy - Family History Family History: Reports;: Family Diabetes - Social History Smoking Status: Never smoker Frequency of Alcohol Use: None Type of Drug Use: None Exam - Constitutional Vitals: Period Temp Pulse Resp BP Sys/Obando Pulse Ox Last 24 Hr 97.6 F-98.7 F 74-86 13-18 106-176/54-75 91-100 Alert and oriented Mild discomfort with logroll of her hip. No gross deformity. She can flex extend her toes. Sensations grossly intact to light touch. Dorsalis pedis pulse palpable. Radiographs and CT scan from the [facility] reviewed. They demonstrate minimally displaced inferior and superior pelvic rami fractures. Impression: Left inferior and superior pelvic rami fractures Plan: I do advise close treatment of her fractures with protected weightbearing. She can be weightbearing as tolerated with walker protection. She can be discharged to the [facility] swing bed at any time from my standpoint. Follow-up in 4 weeks. Results - Labs CBC & BMP: 03/16/17 05:07 Assessment and Plan (1) Pelvic ring fracture Status: Acute Current Visit: Yes Qualifiers: Encounter type: initial encounter Fracture type: closed Qualified Code(s) : S32.810A - Multiple fractures of pelvis with stable disruption of pelvic ring , initial encounter for closed fracture
[2017-03-16] MEDS ORDERED: TUBERCULIN SKIN TEST 0.1 ML SYRINGE INTRADERM ONE (11:35)
--- NOTE | 2017-03-16 11:37 | Case Mgmt Physician Query Form ---
TB Signs and Symptoms Screening ([place]) INSTRUCTIONS: To be completed annually on residents/staff with a significant Tuberculin Skin Test (TST) upon admission/hire or a prior significant TST. To be completed on all staff at hire. Please respond to each listed symptom with an (X) in either the "YES" or "NO" box. Do you currently have any of the following symptoms: YES NO ( ) ( X) A cough If yes, is it: ( ) Productive ( ) Non- productive ( ) ( X) Hemoptysis (spitting up blood) ( ) (X ) Chest pains ( ) (X ) Weight Loss ( ) ( X) Fever ( ) (X ) Night Sweats ( ) (X ) Weakness ( ) ( X) Loss of Appetite ( ) (X ) Difficulty Breathing If you answered YES" to any of the above questions, how long have symptoms been present? Comments: If you have any questions, please contact me. Thank you, Nena Mitchell RN, Office : [phone] Email : [email or web address]
--- NOTE | 2017-03-16 12:54 | Hospitalist Progress Note ---
Assessment and Plan (1) Fracture of left inferior pubic ramus Status: Acute Assessment and plan: The patient is comfortable on present regimen. We will arrange swing bed at [facility]. I am going to request nephrology consultation for dialysis. Current Visit: Yes (2) Hemodialysis access, AV graft Status: Acute Current Visit: No Hospitalist: Subjective Interval history: Mrs. Juarez was admitted to the hospital after a fall. She has a pelvis fracture. The patient has end-stage renal disease and takes dialysis 3 times weekly. The patient will be treated conservatively for pelvis fracture we are arranging transfer to swing bed at [facility]. I coordinate care with case finishing machine adjuster today. Exam - Constitutional Vitals: Period Temp Pulse Resp BP Sys/Obando Pulse Ox Last 24 Hr 97.6 F-98.7 F 74-86 13-18 106-176/54-75 91-100 Exam: Constitutional System: Mild distress. No tremulousness. Head: Normocephalic, atraumatic. Ears, Nose and Throat System: No evidence of Otitis or Mastoiditis. No epistaxis or discharge Eyes System: Pupils equal, round, and reactive. Extraocular muscles intact. Neck: Supple, without adenopathy, No jugular venous distention. No thyromegaly , neck mass, or prior surgery apparent. Respiratory System: Chest clear to auscultation. Cardiovascular System: Heart with regular rate and rhythm. No murmur. GI System: Abdomen soft, nontender. Normo active bowel sounds present. Musculoskeletal System: limbs with no pedal edema. The patient has pain upon rocking of pelvis Neurological System: No discernable sensory deficit. No aphasia Psychiatric System: Conversation is rational Results - Labs CBC & BMP: 03/16/17 05:07 Lab Results: I have reviewed the past 24 hour labs Quality Measures - VTE Contraindication to Pharmacological VTE Prophylaxis: Thrombocytopenia Specialty Discharge - Follow Up or Referrals Follow up with: Donny Calderón Jr., MD [Physician] - 04/21/17 12:15 pm
--- NOTE | 2017-03-16 15:18 | Nephrology Consult Note ---
History of Present Illness Chief complaint: Pelvic fracture status post fall in an ESRD patient History of present illness: Ms. Brasher is a 77 year old female who dialyzes on a Thursday basis in [facility]. The patient states she fell at home while she was standing in front of her chair. This occurred around noontime yesterday. The patient states her left leg gave away and she fell to the ground. Patient denies any syncope or passing out. She complains of pain on her left hip and pelvic area. Patient denies any fever. She does state that she has been feeling a little bit chilled here lately. Patient's last dialysis was this past Thursday she does state that she had some muscle cramping on dialysis Thursday. ROS: Head - denies headaches ENT - denies sore throat Lymphatics - denies lymphadenopathy Hematology - denies bleeding problems Heart - denies chest pain Lungs - denies shortness of breath Abdomen - denies abdominal pain, she states she suffers from acid reflux Musculoskeletal - denies arthritis Skin - denies rash Neurology - denies stroke General - denies fever PE: General: in no acute distress Eyes: Pupils are round and reactive, conjunctivae are clear ENT: Nose is clear, O/P is benign Neck: Supple, no thyromegaly Lymphatics: No cervical, supraclavicular or axillary adenopathy Heart: Regular rate and rhythm, no edema Lungs: Clear to auscultation anteriorly, chest expansion symmetric Abdomen: Soft, normoactive bowel sounds, no hepatomegaly Musculoskeletal: No joint erythema or effusions or joint asymmetry Skin: Normal turgor, normal hydration, no rash Neuro/Psych: Alert and cooperative with fair insight Home Medications Medication Instructions Recorded Confirmed Type Pantoprazole Tab [Protonix Tab] 40 mg PO DAILY PRN 11/02/14 03/15/17 History amLODIPine [Norvasc] 10 mg PO DAILY 02/24/17 03/15/17 History Latanoprost 0.005% Oph Soln 1 drop RIGHT EYE BEDTIME 03/15/17 03/15/17 History [Xalatan 0.005% Oph Soln] Sevelamer Carbonate Tab [Renvela 1,600 mg PO TID W/MEALS 03/15/17 03/15/17 History Tab] Sevelamer Carbonate Tab [Renvela 800 mg PO WITH SNACKS 03/15/17 03/15/17 History Tab] Allergies Allergy/AdvReac Type Severity Reaction Status Date / Time No Known Allergies Allergy Verified 02/24/17 14:32 Medical,Surgical,& Family Hx - Medical History Cardio: History of: Hypertension Neurology: No history of: Seizures HEENT: History of: Eye Problem (cataract extraction right, blind left eye) Endocrine: History of: Diabetes Mellitus (NIDDM) (no medication since dialysis) Renal: History of: Dialysis, Renal Failure (kiley, jose alejandro, sat) Comment Only: Renal Problems (left av graft) Gastrointestinal: History of: GERD - Surgical History Abdominal Surgeries: Surgical HX of: Abdominal Surgery, Appendectomy, Cholecystectomy Reproductive Surgeries: Surgical HX of;: Section, Hysterectomy - Family History Family History: Reports;: Family Diabetes - Social History Smoking Status: Never smoker Frequency of Alcohol Use: None Type of Drug Use: None Exam - Vital Signs Vital signs: Period Temp Pulse Resp BP Sys/Obando Pulse Ox Last 24 Hr 97.6 F-98.7 F 74-86 13-18 106-176/54-75 91-100 Results - Labs CBC & BMP: 03/16/17 05:07 Assessment and Plan (1) ESRD on hemodialysis Problem details: No acute indication for HD at this time. Status: Chronic Assessment and plan: We will plan on hemodialysis tomorrow. Current Visit: No (2) Fracture of left inferior pubic ramus Status: Acute Assessment and plan: Management per orthopedics Current Visit: Yes (3) Hypertension Status: Acute Assessment and plan: Continue her present antihypertensives Current Visit: Yes (4) Diabetes mellitus Status: Chronic Assessment and plan: Patient states he stopped requiring any medication for this when she started dialysis. Current Visit: No Qualifiers: Diabetes mellitus type: type 2 Diabetes mellitus complication status: with kidney complications Chronic kidney disease stage: on chronic dialysis (5) Anemia Status: Acute Assessment and plan: Patient's hematocrit was around 31% a few weeks ago. Current Visit: Yes (6) Secondary hyperparathyroidism Status: Acute Assessment and plan: We will continue her phosphate binder Current Visit: Yes Specialty Discharge - Follow Up or Referrals Follow up with: Donny Calderón Jr., MD [Physician] - 04/21/17 12:15 pm
[2017-03-17] MEDS: INSULIN LISPRO 100 UNIT/ML SUBCUT SCH ×4 (08:20→21:08)
[2017-03-17] MEDS: SEVELAMER CARBONATE 800 MG TABLET PO SCH ×3 (08:26→17:05)
--- NOTE | 2017-03-17 08:29 | Nephrology Progress Note ---
Nephrology - PN: Subj Interval history: Patient feels poorly today. She does state she was able to stand and take a few steps yesterday. She continues to complain of pain in her hip and pelvis. Review of systems pulmonary she denies shortness of breath Physical exam general the patient is chronically ill-appearing Assessment/plan 1. End-stage renal disease-we will continue hemodialysis support 2. Pelvic rami fracture-continue ambulatory efforts 3. Hypertension 4. Diabetes mellitus-diet controlled. Exam (PN)-Nephrology - Vital Signs Vital signs: Period Temp Pulse Resp BP Sys/Obando Pulse Ox Last 24 Hr 97.8 F-99.4 F 79-92 16-18 143-165/63-73 91-96 - Lab 03/16/17 05:07 Most recent lab results Calcium 8.4 MG/DL (8.5-10.1) L 03/16/17 05:07 Magnesium 2.1 MG/DL (1.8-2.4) 03/16/17 05:07 Assessment and Plan (1) ESRD on hemodialysis Problem details: No acute indication for HD at this time. Status: Chronic Assessment and plan: We will plan on hemodialysis tomorrow. Current Visit: No (2) Fracture of left inferior pubic ramus Status: Acute Assessment and plan: Management per orthopedics Current Visit: Yes (3) Hypertension Status: Acute Assessment and plan: Continue her present antihypertensives Current Visit: Yes (4) Diabetes mellitus Status: Chronic Assessment and plan: Patient states he stopped requiring any medication for this when she started dialysis. Current Visit: No Qualifiers: Diabetes mellitus type: type 2 Diabetes mellitus complication status: with kidney complications Chronic kidney disease stage: on chronic dialysis (5) Anemia Status: Acute Assessment and plan: Patient's hematocrit was around 31% a few weeks ago. Current Visit: Yes (6) Secondary hyperparathyroidism Status: Acute Assessment and plan: We will continue her phosphate binder Current Visit: Yes Specialty Discharge - Follow Up or Referrals Follow up with: Donny Calderón Jr., MD [Physician] - 04/21/17 12:15 pm
--- NOTE | 2017-03-17 08:38 | Orthopedic Progress Note ---
Assessment and Plan (1) Pelvic ring fracture Status: Acute Current Visit: Yes Qualifiers: Encounter type: initial encounter Fracture type: closed Qualified Code(s) : S32.810A - Multiple fractures of pelvis with stable disruption of pelvic ring , initial encounter for closed fracture Orthopedics - Subjective Interval history: She is still complaining of some groin pain. She was able to transfer to a chair yesterday. Left lower extremity exam is unchanged. Plan: Continue with physical therapy. SCDs for DVT prophylaxis. Exam - Constitutional Vitals: Period Temp Pulse Resp BP Sys/Obando Pulse Ox Last 24 Hr 97.8 F-99.4 F 79-92 16-18 143-165/63-73 91-96 Results - Labs CBC & BMP: 03/16/17 05:07 Quality Measures - VTE Contraindication to Pharmacological VTE Prophylaxis: Thrombocytopenia Specialty Discharge - Follow Up or Referrals Follow up with: Donny Calderón Jr., MD [Physician] - 04/21/17 12:15 pm
--- NOTE | 2017-03-17 10:31 | Hospitalist Progress Note ---
Assessment and Plan (1) Fracture of left inferior pubic ramus Status: Acute Assessment and plan: The patient is comfortable on present regimen. We will arrange swing bed at [facility]. The patient is having dialysis today and 3 times weekly. Current Visit: Yes (2) Hemodialysis access, AV graft Status: Acute Current Visit: No Hospitalist: Subjective Interval history: Mrs. Juarez is admitted to hospital with pelvis fracture. The patient is in hemodialysis presently where I examined her. The patient has no new complaints. She still has moderate pain with movement in the bed. Exam - Constitutional Vitals: Period Temp Pulse Resp BP Sys/Obando Pulse Ox Last 24 Hr 97.8 F-99.4 F 79-92 16-18 143-165/63-73 91-96 Exam: Constitutional System: Mild distress. No tremulousness. Head: Normocephalic, atraumatic. Ears, Nose and Throat System: No evidence of Otitis or Mastoiditis. No epistaxis or discharge Eyes System: Pupils equal, round, and reactive. Extraocular muscles intact. Neck: Supple, without adenopathy, No jugular venous distention. No thyromegaly , neck mass, or prior surgery apparent. Respiratory System: Chest clear to auscultation. Cardiovascular System: Heart with regular rate and rhythm. No murmur. GI System: Abdomen soft, nontender. Normo active bowel sounds present. Musculoskeletal System: limbs with no pedal edema. The patient has pain upon rocking of pelvis Neurological System: No discernable sensory deficit. No aphasia Psychiatric System: Conversation is rational Results - Labs CBC & BMP: 03/16/17 05:07 Lab Results: I have reviewed the past 24 hour labs Quality Measures - VTE Contraindication to Pharmacological VTE Prophylaxis: Thrombocytopenia Specialty Discharge - Follow Up or Referrals Follow up with: Donny Calderón Jr., MD [Physician] - 04/21/17 12:15 pm
--- NOTE | 2017-03-17 11:07 | Physician Query Form ---
CLICK EDIT DOCUMENT TO SELECT QUERY ANSWER --> OK --> SIGN Sonal Arango RN Clinical Aviation Warfare Systems Operator W) [phone] (f) [phone] [email or web address] PROVIDERS: Make your selection(s) from the choices in EACH section by typing an "x" and enter comments in the comment section. Please use your independent medical judgment in providing your response. This request does not imply that any particular answer is desired or expected. CLINICAL INDICATORS: (Providers should not edit this section) Height: 5ft 2in Weight: 103 lbs Manual Lathe Operator BMI: 18.3 Nutritional supplements: 8 oz Nepro with Breakfast tray for patient to sip on through out the day Plush Weaver notes: underweight Based on the above, which following choice most accurately represents the patient's nutritional status? ( X) Malnutrition ( X) mild ( ) moderate ( ) severe ( ) Protein calorie malnutrition ( ) mild ( ) moderate ( ) severe ( ) Emaciation due to malnutrition ( ) Nutritional marasmus ( ) Cachexia ( ) Underweight ( ) No nutritional deficiency ( ) Other, please specify: ( ) Clinically unable to determine Mild Malnutrition (BMI < 18.5, % Normal Body Weight 85-95%) Moderate Malnutrition (BMI < 17, % Normal Body Weight 75-85%) Severe Malnutrition (BMI < 16, % Normal Body Weight < 75%) Source: Nallely COMMENTS: PLEASE ALSO DOCUMENT RESPONSE IN PROGRESS NOTES AND/OR DISCHARGE SUMMARY Use of terms such as suspected, likely, or probable (associated with a specific diagnosis that is being evaluated, monitored, or treated as if it exists) are acceptable and can be restated in the discharge summary if not ruled out. MTDD
--- NOTE | 2017-03-17 11:54 | Dialysis Note ---
Dialysis Note - Dialysis Note Patient is seen on hemodialysis, she is tolerating this well will continue her treatment unchanged.
[2017-03-17] MEDS: FOSINOPRIL 10 MG TABLET PO SCH (14:28)
[2017-03-17] MEDS: PANTOPRAZOLE 40 MG TABLET PO SCH (14:29)
[2017-03-17] MEDS: amLODIPine 10 MG TABLET PO SCH (14:29)
[2017-03-17] MEDS: LATANOPROST 0.005% OPH SOLN 2.5 ML BOTTLE RIGHT EYE SCH (21:08)
--- NOTE | 2017-03-18 08:05 | Discharge Summary ---
Hospital Course - Hospital Course Hospital Course: The patient was admitted to the hospital after a fall. She had a pelvis fracture. The patient was seen in consultation by Dr. Calderón and the patient required conservative management per her usual regimen. The patient continued on hemodialysis as directed by the wood router. The patient's diabetes was managed with usual medications that she took at home. The patient will require several weeks for the fracture to heal and during that time she will require swing bed correction care. The patient will receive physical and occupational therapy as tolerated with the goal of returning to independent living. The patient is ready for transfer to [facility]. On the date of discharge, chest is clear, heart has regular rate and rhythm, abdomen soft. Patient medications were reconciled upon admission, and again at the time of discharge. The patient was screened for tobacco use and found to be a occasional smoker. The patient was given 4 minutes of tobacco avoidance education. The patient's medical decsion maker is themself, and when asked, they asked to be Full code. Discharge Time was 32 minutes, including final examination, evaluation and planning, education, reconciliation of medications, writing prescriptions, coordinating care with major case detective, and preparing discharge documentation. - Time spent with patient Time with patient DS: Greater than 30 minutes Time spent discussing smoking cessation with patient: 3 to 10 minutes (4 minutes ) Diagnosis - Discharge Diagnosis (1) Fracture of left inferior pubic ramus Status: Acute (2) Hemodialysis access, AV graft Status: Chronic Specialty Discharge - Follow Up or Referrals Follow up with: Donny Calderón Jr., MD [Physician] - 04/21/17 12:15 pm Discharge Plan - Discharge Data Disposition: Swing Bed, [facility] Based, [facility] Condition at Discharge: Stable Discharge Diet: diabetic diet Activity: as per physical therapy - Discharge Medications New Dextrose 50% [D50] 25 gm IV PRN PRN syringe PRN Reason: Hypoglycemia with IV access Fosinopril [Monopril] 10 mg PO DAILY tablet Glucagon 1 mg IM PRN PRN vial PRN Reason: Hypoglycemia w/o IV access HYDROcodone/ACETAMIN 7.5-325 [Mccool 7.5-325] 1 tablet PO Q4H PRN #30 tablet PRN Reason: Pain Moderate (4-7) Acetaminophen Tab [Tylenol Tab] 650 mg PO Q4H PRN tablet PRN Reason: Fever, Headache, Mild Pain Continue Pantoprazole Tab [Protonix Tab] 40 mg PO DAILY PRN PRN Reason: Reflux amLODIPine [Norvasc] 10 mg PO DAILY Latanoprost 0.005% Oph Soln [Xalatan 0.005% Oph Soln] 1 drop RIGHT EYE BEDTIME Sevelamer Carbonate Tab [Renvela Tab] 1,600 mg PO TID W/MEALS Sevelamer Carbonate Tab [Renvela Tab] 800 mg PO WITH SNACKS - Follow Up or Referral Follow Up: Donny Calderón Jr., MD [Physician] - 04/21/17 12:15 pm - Forms/Instructions Exam - Constitutional Vitals: Period Temp Pulse Resp BP Sys/Obando Pulse Ox Last 24 Hr 98.2 F-99.1 F 73-84 14-20 121-133/53-64 92-96 Discharge Results Labs on day of discharge: Labs from last 24 hours 03/18/17 03/17/17 03/17/17 06:48 20:36 15:55 POC Glucose 73 L 108 H 129 H DS: Provider Date of admission: 03/15/17 21:16 Primary care physician: Edi Henning MD Attending physician on admission: Tan Feng MD Consults: 03/15/17 21:18 Consult to Physician [CONS] Routine Comment: ESRD on HD Consulting Provider: Tan Saunders Consulting Provider Notified: Yes When should Consulting Provider be notified: Now Person Notified: sheree called Date Notified: 03/16/17 Time Notified: 13:41 Consult Notification Comment: message left at 9:09 on 03/16/17 03/15/17 21:25 Consult to Physical Therapy [CONS] Routine Reason for Physical Therapy: Evaluate and Treat Start Therapy: Tomorrow Consult Comment: Pelvic Fracture 03/15/17 22:38 Consult to Physician [CONS] Routine Comment: Pelvic Fracture Consulting Provider: Donny Calderón Jr. Consulting Provider Notified: Yes When should Consulting Provider be notified: Now Person Notified: farhad called Date Notified: 03/16/17 Time Notified: 08:04 03/16/17 02:58 Consult to Case Mgmt/Social Srvs [CONS] Routine Reason for Case Mgmt/Social Srvs: Swingbed/SNF/Residential Rehab Discharge Planning Consult Comment: Referral for Swing Bed placement f/Rehab. Discharging clinician: Jed Hernandez MD
[2017-03-18] MEDS: SEVELAMER CARBONATE 800 MG TABLET PO SCH (08:16)
[2017-03-18] MEDS: INSULIN LISPRO 100 UNIT/ML SUBCUT SCH (08:22)
--- NOTE | 2017-03-18 09:02 | Nephrology Progress Note ---
Nephrology - PN: Subj Interval history: Patient is feeling better. She denies shortness of breath. Review of systems GI she denies nausea or vomiting Physical exam general the patient is in no acute distress Assessment/plan 1. End-stage renal disease-we will continue her outpatient dialysis 2. Pelvic rami fracture-patient's pain is improved 3. Hypertension this is controlled 4. Diabetes mellitus-this is diet controlled her sugars have been well controlled here. Exam (PN)-Nephrology - Vital Signs Vital signs: Period Temp Pulse Resp BP Sys/Obando Pulse Ox Last 24 Hr 98.2 F-99.1 F 73-84 14-20 121-133/53-64 92-96 - Lab 03/16/17 05:07 Most recent lab results Calcium 8.4 MG/DL (8.5-10.1) L 03/16/17 05:07 Magnesium 2.1 MG/DL (1.8-2.4) 03/16/17 05:07 Assessment and Plan (1) ESRD on hemodialysis Problem details: No acute indication for HD at this time. Status: Chronic Assessment and plan: We will plan on hemodialysis tomorrow. Current Visit: No (2) Fracture of left inferior pubic ramus Status: Acute Assessment and plan: Management per orthopedics Current Visit: Yes (3) Hypertension Status: Acute Assessment and plan: Continue her present antihypertensives Current Visit: Yes (4) Diabetes mellitus Status: Chronic Assessment and plan: Patient states he stopped requiring any medication for this when she started dialysis. Current Visit: No Qualifiers: Diabetes mellitus type: type 2 Diabetes mellitus complication status: with kidney complications Chronic kidney disease stage: on chronic dialysis (5) Anemia Status: Acute Assessment and plan: Patient's hematocrit was around 31% a few weeks ago. Current Visit: Yes (6) Secondary hyperparathyroidism Status: Acute Assessment and plan: We will continue her phosphate binder Current Visit: Yes Specialty Discharge - Follow Up or Referrals Follow up with: Donny Calderón Jr., MD [Physician] - 04/21/17 12:15 pm
--- NOTE | 2017-03-18 09:10 | Orthopedic Progress Note ---
Assessment and Plan (1) Pelvic ring fracture Status: Acute Current Visit: Yes Qualifiers: Encounter type: initial encounter Fracture type: closed Qualified Code(s) : S32.810A - Multiple fractures of pelvis with stable disruption of pelvic ring , initial encounter for closed fracture Orthopedics - Subjective Interval history: Ms. Brasher was able to ambulate several steps yesterday. She is able to sit up in a chair. Left lower extremity exam is unchanged. Continue with current plan. She is to be discharged later today to swing bed. Exam - Constitutional Vitals: Period Temp Pulse Resp BP Sys/Obando Pulse Ox Last 24 Hr 98.2 F-99.1 F 73-84 14-20 121-133/53-64 92-96 Results - Labs CBC & BMP: 03/16/17 05:07 Quality Measures - VTE Contraindication to Pharmacological VTE Prophylaxis: Thrombocytopenia Specialty Discharge - Follow Up or Referrals Follow up with: Donny Calderón Jr., MD [Physician] - 04/21/17 12:15 pm
--- NOTE | 2017-03-18 09:57 | XRay Report ---
XR chest 1V portable Indication: SOB Comparison: Chest x-ray February 24, 2017 Technique: Single frontal view of the chest. Findings: Continued mild/moderate cardiomegaly. Chronic change of the lungs without focal consolidation, pleural effusion, or pneumothorax. Visualized osseous and surrounding soft tissue structures appear grossly unchanged. Diffuse osteopenia and old right rib deformities. IMPRESSION: Continued cardiomegaly without bettina pulmonary edema. PROCEDURE INTERPRETED AT [facility] DEPARTMENT OF RADIOLOGY Final Report Signed by: Dr Behzad Spring
[2017-03-18] MEDS: FOSINOPRIL 10 MG TABLET PO SCH (09:59)
[2017-03-18] MEDS: PANTOPRAZOLE 40 MG TABLET PO SCH (10:00)
[2017-03-18] MEDS: amLODIPine 10 MG TABLET PO SCH (10:01)
[2017-03-18] MEDS ORDERED: DEXTROSE 50% 25 GM/50 ML VIAL IV PRN (11:00)
[2017-03-18 11:17] VITALS: BP 136/59
== END 2017-03-18 11:02 | disposition swing bed (61) | DRG 535 ==
LOC: EDUNIT# → N.ED 19:17 → N.EDINP 21:16 → SUATTDRO 21:16 → N.3E 21:43
PROVIDERS: ADMIT Internal Medicine; ATTEND Internal Medicine

== ENCOUNTER 2018-01-09 19:55 | Inpatient (IN) ==
[2018-01-09 20:48] LABS: Basophils # 0.1 10*3/uL (0.0-0.2); Basophils % 0.5 % (0.0-0.8); Hematocrit 40.2 VOL% (35.7-47.0); Immature Granulocytes % 0.3 %; Immature Granulocytes Absolute 0.03 #; Lymphocytes # 0.5 10*3/uL (1.4-4.0); Lymphocytes % 4.8 % (21.3-54.2); Mean Corpuscular HGB Conc 32.3 GM/DL (32-36); Mean Corpuscular Hemoglobin 33 PG (27-34); Mean Corpuscular Volume 101.5 FL (87-102); Mean Platelet Volume 11.5 FL (9.6-12.0); Monocytes # 0.8 10*3/uL (0.11-0.8); Monocytes % 6.6 % (1.7-12.7); Neutrophils # 9.9 10*3/uL (1.4-7.4); Neutrophils % 87.8 % (38.7-73.9); Platelet Count 119 T/CUMM (130-400); Red Blood Count 3.96 MC/CUMM (3.8-5.5); White Blood Count 11.3 T/CUMM (4-12)
[2018-01-09 20:57] LABS: PT Patient Result 10.6 SECS
[2018-01-09 21:09] LABS: Alanine Aminotransferase 12 U/L (13-56); Albumin 3.8 G/DL (3.4-5.0); Alkaline Phosphatase 90 U/L (45-117); Aspartate Amino Transferase 13 U/L (0-37); Blood Urea Nitrogen 34 MG/DL (7-18); Calcium 8.4 MG/DL (8.5-10.1); Glucose 153 MG/DL (74-106); Osmolality,Calculated 291.3 MOS/KG (273-304); Potassium 4.9 MMOL/L (3.5-5.1); Sodium 141 MMOL/L (136-145); Total Protein 7.1 G/DL (6.4-8.3)
[2018-01-09 21:10] LABS: Troponin I Only 0.075 NG/ML (0.00-0.045)
[2018-01-09 21:11] LABS: Ammonia < 10 UMOL/L (11-32)
[2018-01-09 21:17] LABS: Band Neutrophils 3 % (0-10); Lymphocytes 6 % (20-55); Segmented Neutrophils 86 % (50-85); Total Cells Counted 100
[2018-01-09 21:18] LABS: Platelet Estimate Normal
[2018-01-09] MEDS ORDERED: ONDANSETRON 4 MG/2 ML VIAL IV PRN (23:03)
[2018-01-09] MEDS ORDERED: ACETAMINOPHEN 325 MG TABLET PO PRN (23:03)
[2018-01-09] MEDS ORDERED: GLUCAGON 1 MG VIAL IM PRN (23:13)
[2018-01-09] MEDS ORDERED: DEXTROSE 50% 25 GM/50 ML VIAL IV PRN (23:13)
[2018-01-09] MEDS ORDERED: hydrALAZINE 20 MG/1 ML VIAL IV PRN (23:14)
[2018-01-09] MEDS ORDERED: VANCOMYCIN INJ 1,000 MG in SODIUM CHLORIDE 0.9% 250 ML IV STA (23:32)
[2018-01-10] MEDS: HEPARIN 5,000 UNIT/1 ML VIAL SUBCUT SCH ×2 (04:31→13:04)
[2018-01-10] MEDS: PIPERACILLIN/TAZOBACTAM 3,375 MG in SODIUM CHLORIDE 0.9% 100 ML IV SCH ×2 (04:31→13:04)
[2018-01-10 06:39] LABS: Calcium 8.6 MG/DL (8.5-10.1); Potassium 4.3 MMOL/L (3.5-5.1)
[2018-01-10] MEDS ORDERED: amLODIPine 5 MG TABLET PO SCH ×2 (09:00→12:53)
[2018-01-10] MEDS: INSULIN LISPRO 100 UNIT/ML SUBCUT SCH ×4 (09:06→21:49)
[2018-01-10] MEDS: LISINOPRIL 10 MG TABLET PO SCH (09:13)
[2018-01-10] MEDS: PANTOPRAZOLE 40 MG TABLET PO SCH (09:14)
[2018-01-10] MEDS ORDERED: cloNIDine 0.1 MG TABLET PO PRN (11:44)
[2018-01-10 12:19] LABS: Risk Ratio 2.85; VLDL CHOLESTEROL 15.4 MG/DL
[2018-01-10] MEDS: ASPIRIN EC 81 MG TABLET PO SCH (13:03)
[2018-01-10 13:52] LABS: Apearance,Urine Cloudy (Clear); Urine Color Yellow (Yellow); Urine Specific Gravity 1.005 (1.001-1.035)
[2018-01-10 13:53] LABS: Bilirubin,Urine Negative (Negative); Blood, Urine Moderate mg/dL (Negative); Glucose,Urine (UA) Negative (Negative); Ketones,Urine Negative (Negative); Nitrite,Urine Negative (Negative); Protein,Urine >=500 MG/DL; Squamous Epithelial Cell,Urine Few /HPF (0-10); Urine Urobilinogen 0.2 EU/DL (0.2-1.0); WBC,Urine 50-60 /HPF (0-6)
[2018-01-10 13:54] LABS: Bacteria,Urine Few /HPF (Few)
[2018-01-10] MEDS ORDERED: SEVELAMER CARBONATE 800 MG TABLET PO SCH (16:00)
[2018-01-10] MEDS: SEVELAMER CARBONATE 800 MG TABLET PO SCH (17:29)
[2018-01-10] MEDS: CARVEDILOL 3.125 MG TABLET PO SCH (21:47)
[2018-01-10] MEDS: LATANOPROST 0.005% OPH SOLN 2.5 ML BOTTLE RIGHT EYE SCH (21:49)
[2018-01-11] MEDS: HEPARIN 5,000 UNIT/1 ML VIAL SUBCUT SCH ×2 (00:20→13:12)
[2018-01-11] MEDS: PIPERACILLIN/TAZOBACTAM 3,375 MG in SODIUM CHLORIDE 0.9% 100 ML IV SCH ×2 (00:25→13:16)
[2018-01-11] MEDS: INSULIN LISPRO 100 UNIT/ML SUBCUT SCH ×4 (08:29→20:46)
[2018-01-11] MEDS: SEVELAMER CARBONATE 800 MG TABLET PO SCH ×3 (10:01→18:15)
[2018-01-11] MEDS: PANTOPRAZOLE 40 MG TABLET PO SCH (10:01)
[2018-01-11] MEDS: amLODIPine 10 MG TABLET PO SCH (10:01)
[2018-01-11] MEDS: LISINOPRIL 10 MG TABLET PO SCH (10:01)
[2018-01-11] MEDS: ASPIRIN EC 81 MG TABLET PO SCH (10:01)
[2018-01-11] MEDS: CARVEDILOL 3.125 MG TABLET PO SCH ×2 (10:02→20:53)
[2018-01-11] MEDS: hydrALAZINE 25 MG TABLET PO SCH ×2 (15:29→20:53)
[2018-01-11] MEDS: LATANOPROST 0.005% OPH SOLN 2.5 ML BOTTLE RIGHT EYE SCH (20:53)
[2018-01-11] MEDS: THIAMINE 100 MG TABLET PO SCH (20:54)
[2018-01-12] MEDS: HEPARIN 5,000 UNIT/1 ML VIAL SUBCUT SCH ×2 (00:43→12:45)
[2018-01-12] MEDS: PIPERACILLIN/TAZOBACTAM 3,375 MG in SODIUM CHLORIDE 0.9% 100 ML IV SCH ×2 (00:43→14:46)
[2018-01-12] MEDS: INSULIN LISPRO 100 UNIT/ML SUBCUT SCH ×4 (08:12→20:29)
[2018-01-12] MEDS: PANTOPRAZOLE 40 MG TABLET PO SCH (08:50)
[2018-01-12] MEDS: THIAMINE 100 MG TABLET PO SCH ×2 (08:51→20:29)
[2018-01-12] MEDS: hydrALAZINE 25 MG TABLET PO SCH (08:51)
[2018-01-12] MEDS: CARVEDILOL 3.125 MG TABLET PO SCH (08:51)
[2018-01-12] MEDS: amLODIPine 10 MG TABLET PO SCH (08:51)
[2018-01-12] MEDS: LISINOPRIL 10 MG TABLET PO SCH (08:51)
[2018-01-12] MEDS: ASPIRIN EC 81 MG TABLET PO SCH (08:51)
[2018-01-12] MEDS: SEVELAMER CARBONATE 800 MG TABLET PO SCH ×3 (08:52→17:22)
[2018-01-12] MEDS ORDERED: MIDODRINE 5 MG TABLET PO PRN (09:00)
[2018-01-12] MEDS ORDERED: LABETALOL 100 MG/20 ML VIAL IV PRN (18:31)
[2018-01-12 19:10] LABS: Basophils % 0.4 % (0.0-0.8); Eosinophils # 0.1 10*3/uL (0.0-0.87); Eosinophils % 1.4 % (0.00-10.9); Hematocrit 33.5 VOL% (35.7-47.0); Immature Granulocytes % 0.5 %; Immature Granulocytes Absolute 0.05 #; Lymphocytes # 0.6 10*3/uL (1.4-4.0); Lymphocytes % 6.8 % (21.3-54.2); Mean Corpuscular HGB Conc 32.8 GM/DL (32-36); Mean Corpuscular Hemoglobin 33 PG (27-34); Mean Corpuscular Volume 99.4 FL (87-102); Monocytes # 0.8 10*3/uL (0.11-0.8); Monocytes % 8.2 % (1.7-12.7); Neutrophils # 7.7 10*3/uL (1.4-7.4); Neutrophils % 82.7 % (38.7-73.9); Platelet Count 131 T/CUMM (130-400); Red Blood Count 3.37 MC/CUMM (3.8-5.5); Red Cell Distribution Width 15.3 % (9.3-17.3); White Blood Count 9.4 T/CUMM (4-12)
[2018-01-12 19:16] LABS: Calcium 8.3 MG/DL (8.5-10.1); Osmolality,Calculated 280.7 MOS/KG (273-304); Potassium 4.2 MMOL/L (3.5-5.1)
[2018-01-12] MEDS: LATANOPROST 0.005% OPH SOLN 2.5 ML BOTTLE RIGHT EYE SCH (20:41)
[2018-01-13] MEDS: HEPARIN 5,000 UNIT/1 ML VIAL SUBCUT SCH ×2 (00:33→13:14)
[2018-01-13] MEDS: PIPERACILLIN/TAZOBACTAM 3,375 MG in SODIUM CHLORIDE 0.9% 100 ML IV SCH ×2 (00:33→13:09)
[2018-01-13 03:36] LABS: Hematocrit 32.3 VOL% (35.7-47.0); Hemoglobin 10.3 GM/DL (12.0-16.0); Red Blood Count 3.11 MC/CUMM (3.8-5.5); White Blood Count 7.9 T/CUMM (4-12)
[2018-01-13 03:37] LABS: Basophils % 0.4 % (0.0-0.8); Eosinophils # 0.1 10*3/uL (0.0-0.87); Eosinophils % 0.8 % (0.00-10.9); Immature Granulocytes % 0.4 %; Immature Granulocytes Absolute 0.03 #; Lymphocytes # 1.1 10*3/uL (1.4-4.0); Lymphocytes % 13.5 % (21.3-54.2); Mean Corpuscular HGB Conc 31.9 GM/DL (32-36); Mean Corpuscular Hemoglobin 33 PG (27-34); Mean Corpuscular Volume 103.9 FL (87-102); Mean Platelet Volume 12.2 FL (9.6-12.0); Monocytes # 0.8 10*3/uL (0.11-0.8); Monocytes % 9.8 % (1.7-12.7); Neutrophils # 5.9 10*3/uL (1.4-7.4); Neutrophils % 75.1 % (38.7-73.9); Platelet Count 127 T/CUMM (130-400); Red Cell Distribution Width 15.4 % (9.3-17.3)
[2018-01-13 03:59] LABS: Calcium 8.4 MG/DL (8.5-10.1); Osmolality,Calculated 281.5 MOS/KG (273-304); Potassium 4.4 MMOL/L (3.5-5.1)
[2018-01-13] MEDS: INSULIN LISPRO 100 UNIT/ML SUBCUT SCH ×4 (08:47→21:38)
[2018-01-13] MEDS: PANTOPRAZOLE 40 MG TABLET PO SCH (08:48)
[2018-01-13] MEDS: SEVELAMER CARBONATE 800 MG TABLET PO SCH ×3 (08:48→17:41)
[2018-01-13] MEDS: ASPIRIN EC 81 MG TABLET PO SCH (08:48)
[2018-01-13] MEDS: THIAMINE 100 MG TABLET PO SCH (08:49)
[2018-01-13] MEDS: amLODIPine 10 MG TABLET PO SCH (15:46)
[2018-01-13] MEDS: LATANOPROST 0.005% OPH SOLN 2.5 ML BOTTLE RIGHT EYE SCH (21:37)
[2018-01-14] MEDS: PIPERACILLIN/TAZOBACTAM 3,375 MG in SODIUM CHLORIDE 0.9% 100 ML IV SCH ×2 (04:07→14:53)
[2018-01-14 05:23] LABS: Basophils % 0.5 % (0.0-0.8); Eosinophils # 0.3 10*3/uL (0.0-0.87); Eosinophils % 4.8 % (0.00-10.9); Hematocrit 28.8 VOL% (35.7-47.0); Hemoglobin 9.1 GM/DL (12.0-16.0); Immature Granulocytes % 0.4 %; Immature Granulocytes Absolute 0.02 #; Lymphocytes % 17.9 % (21.3-54.2); Mean Corpuscular HGB Conc 31.6 GM/DL (32-36); Mean Corpuscular Hemoglobin 32 PG (27-34); Mean Corpuscular Volume 102.1 FL (87-102); Mean Platelet Volume 12.1 FL (9.6-12.0); Monocytes # 0.6 10*3/uL (0.11-0.8); Monocytes % 11.4 % (1.7-12.7); Neutrophils # 3.6 10*3/uL (1.4-7.4); Platelet Count 137 T/CUMM (130-400); Red Blood Count 2.82 MC/CUMM (3.8-5.5); Red Cell Distribution Width 15.4 % (9.3-17.3); White Blood Count 5.6 T/CUMM (4-12)
[2018-01-14] MEDS: HEPARIN 5,000 UNIT/1 ML VIAL SUBCUT SCH ×2 (05:26→13:32)
[2018-01-14 05:56] LABS: Calcium 8.4 MG/DL (8.5-10.1); Osmolality,Calculated 289.4 MOS/KG (273-304); Potassium 4.7 MMOL/L (3.5-5.1)
[2018-01-14 08:32] LABS: Albumin (SPE) Rel % 64.5 %; Alpha 1 (SPE) 0.2 G/DL (0.1-0.4); Alpha 1 (SPE) Rel % 3.8 %; Alpha 2 (SPE) 0.6 G/DL (0.4-1.0); Alpha 2 (SPE) Rel % 10.3 %; Beta (SPE) 0.5 G/DL (0.5-1.1); Beta (SPE) Rel % 8.6 %; Gamma (SPE) 0.8 G/DL (0.7-1.7); Gamma (SPE) Rel % 12.8 %; Total Protein (Chem) 6.2 G/DL (6.4-8.3)
[2018-01-14] MEDS: INSULIN LISPRO 100 UNIT/ML SUBCUT SCH ×4 (09:49→20:02)
[2018-01-14] MEDS: SEVELAMER CARBONATE 800 MG TABLET PO SCH ×3 (11:58→17:05)
[2018-01-14] MEDS: amLODIPine 10 MG TABLET PO SCH (13:31)
[2018-01-14] MEDS: ASPIRIN EC 81 MG TABLET PO SCH (13:32)
[2018-01-14] MEDS: PANTOPRAZOLE 40 MG TABLET PO SCH (13:32)
[2018-01-14] MEDS: cefTRIAXone 1,000 MG in SYRINGE 1 EACH IV SCH (17:00)
[2018-01-14] MEDS: levETIRAcetam 500 MG TABLET PO SCH (21:07)
[2018-01-14] MEDS: LATANOPROST 0.005% OPH SOLN 2.5 ML BOTTLE RIGHT EYE SCH (21:08)
[2018-01-15] MEDS: HEPARIN 5,000 UNIT/1 ML VIAL SUBCUT SCH ×2 (01:21→12:55)
[2018-01-15] MEDS: INSULIN LISPRO 100 UNIT/ML SUBCUT SCH ×4 (08:09→20:09)
[2018-01-15] MEDS: levETIRAcetam 500 MG TABLET PO SCH ×2 (09:30→21:34)
[2018-01-15] MEDS: ASPIRIN EC 81 MG TABLET PO SCH (09:30)
[2018-01-15] MEDS: amLODIPine 10 MG TABLET PO SCH (09:30)
[2018-01-15] MEDS: CLOPIDOGREL 75 MG TABLET PO SCH (09:30)
[2018-01-15] MEDS: PANTOPRAZOLE 40 MG TABLET PO SCH (09:30)
[2018-01-15] MEDS: SEVELAMER CARBONATE 800 MG TABLET PO SCH ×3 (09:30→18:26)
[2018-01-15] MEDS: cefTRIAXone 1,000 MG in SYRINGE 1 EACH IV SCH (18:23)
[2018-01-15] MEDS: LATANOPROST 0.005% OPH SOLN 2.5 ML BOTTLE RIGHT EYE SCH (21:35)
[2018-01-16] MEDS: HEPARIN 5,000 UNIT/1 ML VIAL SUBCUT SCH ×2 (01:25→13:42)
[2018-01-16] MEDS: SEVELAMER CARBONATE 800 MG TABLET PO SCH ×2 (08:35→13:42)
[2018-01-16] MEDS: INSULIN LISPRO 100 UNIT/ML SUBCUT SCH ×3 (08:35→13:41)
[2018-01-16 13:14] VITALS: BP 137/65
[2018-01-16] MEDS: levETIRAcetam 500 MG TABLET PO SCH (13:40)
[2018-01-16] MEDS: CLOPIDOGREL 75 MG TABLET PO SCH (13:41)
[2018-01-16] MEDS: amLODIPine 10 MG TABLET PO SCH (13:41)
[2018-01-16] MEDS: PANTOPRAZOLE 40 MG TABLET PO SCH (13:41)
[2018-01-16] MEDS: ASPIRIN EC 81 MG TABLET PO SCH (13:41)
== END 2018-01-16 15:00 | disposition home health service (06) | DRG 77 ==
LOC: EDUNIT# → EDBD → N.ED 19:55 → N.EDINP 23:03 → SUATTDRO 23:04 → N.5E 01-10 00:18 → N.ICU 01-12 17:18 → N.TELEN 01-13 16:04
PROVIDERS: ADMIT Internal Medicine; ATTEND Internal Medicine

== ENCOUNTER 2020-07-10 10:07 | Observation (INO) ==
[2020-07-10 13:51] LABS: Basophils # 0.1 10*3/uL (0.0-0.2); Basophils % 1.2 % (0.0-0.8); Eosinophils # 0.2 10*3/uL (0.0-0.87); Eosinophils % 3.7 % (0.00-10.9); Hematocrit 25.4 VOL% (35.7-47.0); Hemoglobin 7.9 GM/DL (12.0-16.0); Immature Granulocytes % 0.5 %; Immature Granulocytes Absolute 0.02 #; Lymphocytes # 0.8 10*3/uL (1.4-4.0); Lymphocytes % 18.9 % (21.3-54.2); Mean Corpuscular HGB Conc 31.1 GM/DL (32-36); Mean Corpuscular Volume 105.4 FL (87-102); Mean Platelet Volume 9.8 FL (9.6-12.0); Monocytes % 7.4 % (1.7-12.7); Neutrophils % 68.3 % (38.7-73.9); Platelet Count 141 T/CUMM (130-400); Red Blood Count 2.41 MC/CUMM (3.8-5.5); Red Cell Distribution Width 17.2 % (9.3-17.3); White Blood Count 4.3 T/CUMM (4-12)
[2020-07-10 14:30] LABS: Alanine Aminotransferase < 6 U/L (13-56); Albumin 3.1 G/DL (3.4-5.0); Alkaline Phosphatase 84 U/L (45-117); Aspartate Amino Transferase 5 U/L (0-37); Bilirubin,Total < 0.39 MG/DL (0.2-1.0); Blood Urea Nitrogen 60 MG/DL (7-18); Calcium 8.5 MG/DL (8.5-10.1); Carbon Dioxide 24 MMOL/L (21-32); Estimated Glom Filtration Rate 3 ML/MIN; Glucose 161 MG/DL (74-106); Osmolality,Calculated 298.4 MOS/KG (273-304); Potassium 4.5 MMOL/L (3.5-5.1); Sodium 140 MMOL/L (136-145); Total Protein 6.7 G/DL (6.4-8.3)
[2020-07-10] MEDS ORDERED: ACETAMINOPHEN 325 MG TABLET PO PRN (15:47)
[2020-07-10] MEDS ORDERED: GLUCAGON 1 MG VIAL IM PRN (15:47)
[2020-07-10] MEDS ORDERED: DEXTROSE 50% 25 GM/50 ML VIAL IV PRN (15:47)
[2020-07-10] MEDS ORDERED: ONDANSETRON 4 MG/2 ML VIAL IV PRN (15:47)
[2020-07-10] MEDS: PANTOPRAZOLE 40 MG TABLET PO SCH (22:07)
[2020-07-10] MEDS: INSULIN LISPRO 100 UNIT/ML SUBCUT SCH (22:44)
[2020-07-11 04:03] VITALS: BP 164/63
[2020-07-11 06:06] LABS: Basophils % 0.9 % (0.0-0.8); Eosinophils # 0.2 10*3/uL (0.0-0.87); Eosinophils % 4.8 % (0.00-10.9); Hemoglobin 8.8 GM/DL (12.0-16.0); Immature Granulocytes % 0.7 %; Immature Granulocytes Absolute 0.03 #; Lymphocytes # 0.7 10*3/uL (1.4-4.0); Lymphocytes % 15.3 % (21.3-54.2); Mean Corpuscular HGB Conc 31.4 GM/DL (32-36); Mean Corpuscular Volume 106.5 FL (87-102); Mean Platelet Volume 10.7 FL (9.6-12.0); Monocytes % 6.4 % (1.7-12.7); Neutrophils % 71.9 % (38.7-73.9); Platelet Count 146 T/CUMM (130-400); Red Blood Count 2.63 MC/CUMM (3.8-5.5); Red Cell Distribution Width 17.2 % (9.3-17.3); White Blood Count 4.4 T/CUMM (4-12)
[2020-07-11 06:21] LABS: Alanine Aminotransferase < 6 U/L (13-56); Alkaline Phosphatase 69 U/L (45-117); Aspartate Amino Transferase 5 U/L (0-37); Blood Urea Nitrogen 65 MG/DL (7-18); Calcium 8.8 MG/DL (8.5-10.1); Carbon Dioxide 23 MMOL/L (21-32); Estimated Glom Filtration Rate 2 ML/MIN; Glucose 82 MG/DL (74-106); Osmolality,Calculated 292.7 MOS/KG (273-304); Sodium 138 MMOL/L (136-145); Total Protein 6.7 G/DL (6.4-8.3)
[2020-07-11] MEDS: INSULIN LISPRO 100 UNIT/ML SUBCUT SCH (09:57)
[2020-07-11] MEDS: PANTOPRAZOLE 40 MG TABLET PO SCH (11:00)
== END 2020-07-11 13:00 | disposition home or self-care (01) ==
LOC: N.ED 10:07 → N.EDINP 10:07
PROVIDERS: ADMIT Internal Medicine; ATTEND Internal Medicine

== ENCOUNTER 2021-03-18 15:10 | Inpatient (IN) ==
[2021-03-18] MEDS ORDERED: MELATONIN 3 MG TABLET PO PRN (19:58)
[2021-03-18] MEDS ORDERED: DEXTROSE 50% 25 GM/50 ML VIAL IV PRN ×2 (19:58)
[2021-03-18] MEDS ORDERED: ONDANSETRON 4 MG/2 ML VIAL IV PRN (19:58)
[2021-03-18] MEDS ORDERED: GLUCAGON 1 MG VIAL IM PRN ×2 (19:58)
[2021-03-18] MEDS: LACTATED RINGERS 1,000 ML IV SCH (20:00)
[2021-03-18] MEDS: AZITHROMYCIN INJ 500 MG in SODIUM CHLORIDE 0.9% 250 ML IV SCH (20:00)
[2021-03-18] MEDS: INSULIN LISPRO 100 UNIT/ML SUBCUT SCH (21:23)
[2021-03-18] MEDS: FAMOTIDINE 20 MG TABLET PO SCH (21:23)
[2021-03-18] MEDS: ASCORBIC ACID 500 MG TABLET PO SCH (23:53)
[2021-03-18] MEDS: ENOXAPARIN 40 MG/0.4 ML SYRINGE SUBCUT SCH (23:55)
[2021-03-19 06:17] LABS: Basophils % 0.1 % (0.0-0.8); Hematocrit 32.2 VOL% (35.7-47.0); Hemoglobin 9.9 GM/DL (12.0-16.0); Immature Granulocytes % 0.7 %; Immature Granulocytes Absolute 0.08 #; Lymphocytes % 9.4 % (21.3-54.2); Mean Corpuscular HGB Conc 30.7 GM/DL (32-36); Mean Corpuscular Volume 109.2 FL (87-102); Monocytes % 3.5 % (1.7-12.7); Neutrophils % 86.3 % (38.7-73.9); Red Blood Count 2.95 MC/CUMM (3.8-5.5); Red Cell Distribution Width 16.3 % (9.3-17.3); White Blood Count 10.7 T/CUMM (4-12)
[2021-03-19 06:33] LABS: Albumin 1.9 G/DL (3.4-5.0); Bilirubin,Total 0.4 MG/DL (0.20-1.00); Calcium 8.4 MG/DL (8.5-10.1); Ferritin 1757.9 ng/mL (8-252); Potassium 3.2 MMOL/L (3.5-5.1)
[2021-03-19 06:36] LABS: Platelet Count 40 T/CUMM (130-400)
[2021-03-19 06:38] LABS: Band Neutrophils 1 % (0-10); Hypochromasia 1+; Lymphocytes 8 % (20-55); Microcytosis 1+; Platelet Estimate Decreased; Segmented Neutrophils 89 % (50-85); Total Cells Counted 100
[2021-03-19] MEDS: INSULIN LISPRO 100 UNIT/ML SUBCUT SCH ×4 (07:30→20:30)
[2021-03-19 08:43] LABS: Sedimentation Rate-Westergren 19 MM/HR (0-30)
[2021-03-19] MEDS: DEXAMETHASONE 4 MG/1 ML VIAL IV SCH ×2 (09:00→13:20)
[2021-03-19] MEDS: ENOXAPARIN 40 MG/0.4 ML SYRINGE SUBCUT SCH ×2 (09:00→20:30)
[2021-03-19] MEDS: FOLIC ACID 1 MG TABLET PO SCH ×2 (10:22→12:00)
[2021-03-19] MEDS: levETIRAcetam 500 MG TABLET PO SCH ×3 (10:22→20:29)
[2021-03-19] MEDS: MEMANTINE 10 MG TABLET PO SCH ×3 (10:22→20:29)
[2021-03-19] MEDS: ASCORBIC ACID 500 MG TABLET PO SCH ×3 (10:22→20:28)
[2021-03-19] MEDS: PANTOPRAZOLE 40 MG TABLET PO SCH ×2 (10:22→12:00)
[2021-03-19] MEDS: FAMOTIDINE 20 MG TABLET PO SCH ×3 (10:22→20:28)
[2021-03-19] MEDS: CHOLECALCIFEROL 1,000 UNIT TABLET PO SCH ×2 (10:23→12:00)
[2021-03-19] MEDS: CETIRIZINE 10 MG TABLET PO SCH ×2 (10:23→12:00)
[2021-03-19] MEDS: ZINC GLUCONATE 50 MG TABLET PO SCH ×2 (10:23→12:00)
[2021-03-19] MEDS: SEVELAMER CARBONATE 800 MG TABLET PO SCH ×2 (12:00→17:00)
[2021-03-19] MEDS: LACTATED RINGERS 1,000 ML IV SCH (16:00)
[2021-03-19] MEDS: DONEPEZIL 10 MG TABLET PO SCH (20:28)
[2021-03-19] MEDS: AZITHROMYCIN INJ 500 MG in SODIUM CHLORIDE 0.9% 250 ML IV SCH (20:29)
[2021-03-19] MEDS: LATANOPROST 0.005% OPH SOLN 2.5 ML BOTTLE RIGHT EYE SCH (20:29)
[2021-03-20 05:26] LABS: Basophils % 0.1 % (0.0-0.8); Hematocrit 32.3 VOL% (35.7-47.0); Immature Granulocytes % 0.4 %; Immature Granulocytes Absolute 0.05 #; Lymphocytes # 0.6 10*3/uL (1.4-4.0); Lymphocytes % 5.2 % (21.3-54.2); Mean Corpuscular Volume 111.8 FL (87-102); Monocytes % 1.8 % (1.7-12.7); NRBC # 0.02 10*3/uL; Neutrophils % 92.5 % (38.7-73.9); Red Blood Count 2.89 MC/CUMM (3.8-5.5); Red Cell Distribution Width 16.9 % (9.3-17.3)
[2021-03-20 05:31] LABS: Platelet Count 55 T/CUMM (130-400)
[2021-03-20 05:50] LABS: Lymphocytes 1 % (20-55); Platelet Estimate Decreased; Segmented Neutrophils 98 % (50-85); Total Cells Counted 100
[2021-03-20 05:58] LABS: Calcium 8.9 MG/DL (8.5-10.1); Ferritin 1640.3 ng/mL (8-252); Potassium 3.1 MMOL/L (3.5-5.1)
[2021-03-20] MEDS: INSULIN LISPRO 100 UNIT/ML SUBCUT SCH ×4 (07:44→20:45)
[2021-03-20] MEDS: SEVELAMER CARBONATE 800 MG TABLET PO SCH ×3 (08:00→17:15)
[2021-03-20] MEDS: levETIRAcetam 500 MG TABLET PO SCH ×2 (09:44→21:15)
[2021-03-20] MEDS: PANTOPRAZOLE 40 MG TABLET PO SCH (09:44)
[2021-03-20] MEDS: ENOXAPARIN 40 MG/0.4 ML SYRINGE SUBCUT SCH ×2 (09:44→21:15)
[2021-03-20] MEDS: ASCORBIC ACID 500 MG TABLET PO SCH ×2 (09:44→21:15)
[2021-03-20] MEDS: MEMANTINE 10 MG TABLET PO SCH ×2 (09:44→21:15)
[2021-03-20] MEDS: CHOLECALCIFEROL 1,000 UNIT TABLET PO SCH (09:44)
[2021-03-20] MEDS: DEXAMETHASONE 4 MG/1 ML VIAL IV SCH (09:44)
[2021-03-20] MEDS: FAMOTIDINE 20 MG TABLET PO SCH ×2 (09:44→21:15)
[2021-03-20] MEDS: FOLIC ACID 1 MG TABLET PO SCH (09:44)
[2021-03-20] MEDS: ZINC GLUCONATE 50 MG TABLET PO SCH (09:45)
[2021-03-20] MEDS: CETIRIZINE 10 MG TABLET PO SCH (09:45)
[2021-03-20] MEDS: LACTATED RINGERS 1,000 ML IV SCH (13:12)
[2021-03-20] MEDS: AZITHROMYCIN INJ 500 MG in SODIUM CHLORIDE 0.9% 250 ML IV SCH (20:40)
[2021-03-20] MEDS: DONEPEZIL 10 MG TABLET PO SCH (21:15)
[2021-03-20] MEDS: LATANOPROST 0.005% OPH SOLN 2.5 ML BOTTLE RIGHT EYE SCH (21:15)
[2021-03-21] MEDS: INSULIN LISPRO 100 UNIT/ML SUBCUT SCH ×4 (07:50→20:57)
[2021-03-21] MEDS: SEVELAMER CARBONATE 800 MG TABLET PO SCH ×3 (08:00→17:43)
[2021-03-21] MEDS: DEXAMETHASONE 4 MG/1 ML VIAL IV SCH (09:00)
[2021-03-21] MEDS: ENOXAPARIN 40 MG/0.4 ML SYRINGE SUBCUT SCH ×2 (09:00→20:57)
[2021-03-21] MEDS: CHOLECALCIFEROL 1,000 UNIT TABLET PO SCH (09:00)
[2021-03-21] MEDS: ASCORBIC ACID 500 MG TABLET PO SCH ×2 (09:00→20:57)
[2021-03-21] MEDS: levETIRAcetam 500 MG TABLET PO SCH ×2 (09:00→20:57)
[2021-03-21] MEDS: FAMOTIDINE 20 MG TABLET PO SCH ×2 (09:00→20:57)
[2021-03-21] MEDS: CETIRIZINE 10 MG TABLET PO SCH (09:00)
[2021-03-21] MEDS: FOLIC ACID 1 MG TABLET PO SCH (09:00)
[2021-03-21] MEDS: PANTOPRAZOLE 40 MG TABLET PO SCH (09:00)
[2021-03-21] MEDS: ZINC GLUCONATE 50 MG TABLET PO SCH (09:00)
[2021-03-21] MEDS: MEMANTINE 10 MG TABLET PO SCH ×2 (09:00→20:57)
[2021-03-21] MEDS: LACTATED RINGERS 1,000 ML IV SCH (09:22)
[2021-03-21] MEDS ORDERED: TUBERCULIN SKIN TEST 0.1 ML SYRINGE INTRADERM ONE (09:39)
[2021-03-21 10:24] LABS: Hematocrit 28.4 VOL% (35.7-47.0); Hemoglobin 8.8 GM/DL (12.0-16.0); Immature Granulocytes % 0.9 %; Immature Granulocytes Absolute 0.08 #; Lymphocytes # 0.9 10*3/uL (1.4-4.0); Lymphocytes % 10.6 % (21.3-54.2); Mean Corpuscular Volume 108.4 FL (87-102); Mean Platelet Volume 13.9 FL (9.6-12.0); NRBC # 0.11 10*3/uL; Neutrophils % 84.5 % (38.7-73.9); Platelet Count 55 T/CUMM (130-400); Red Blood Count 2.62 MC/CUMM (3.8-5.5); Red Cell Distribution Width 16.7 % (9.3-17.3); White Blood Count 8.8 T/CUMM (4-12)
[2021-03-21 10:37] LABS: Calcium 8.4 MG/DL (8.5-10.1); Osmolality,Calculated 286.1 MOS/KG (273-304); Potassium 2.7 MMOL/L (3.5-5.1)
[2021-03-21 10:41] LABS: Ferritin 1318.7 ng/mL (8-252)
[2021-03-21] MEDS: MIDODRINE 5 MG TABLET PO SCH ×2 (14:34→20:57)
[2021-03-21] MEDS: ZINC OXIDE PASTE 113 GM TUBE TOP SCH (20:57)
[2021-03-21] MEDS: LATANOPROST 0.005% OPH SOLN 2.5 ML BOTTLE RIGHT EYE SCH (20:57)
[2021-03-21] MEDS: DONEPEZIL 10 MG TABLET PO SCH (20:57)
[2021-03-21] MEDS: AZITHROMYCIN INJ 500 MG in SODIUM CHLORIDE 0.9% 250 ML IV SCH (20:57)
[2021-03-22] MEDS: LACTATED RINGERS 1,000 ML IV SCH (05:22)
[2021-03-22 07:25] LABS: Ferritin 1197.5 ng/mL (8-252)
[2021-03-22] MEDS: MIDODRINE 5 MG TABLET PO SCH ×3 (09:23→21:05)
[2021-03-22] MEDS: MEMANTINE 10 MG TABLET PO SCH ×2 (09:23→21:05)
[2021-03-22] MEDS: SEVELAMER CARBONATE 800 MG TABLET PO SCH ×3 (09:23→16:11)
[2021-03-22] MEDS: CHOLECALCIFEROL 1,000 UNIT TABLET PO SCH (09:24)
[2021-03-22] MEDS: levETIRAcetam 500 MG TABLET PO SCH ×2 (09:24→21:05)
[2021-03-22] MEDS: ASCORBIC ACID 500 MG TABLET PO SCH ×2 (09:24→21:05)
[2021-03-22] MEDS: ZINC GLUCONATE 50 MG TABLET PO SCH (09:24)
[2021-03-22] MEDS: CETIRIZINE 10 MG TABLET PO SCH (09:24)
[2021-03-22] MEDS: FOLIC ACID 1 MG TABLET PO SCH (09:25)
[2021-03-22] MEDS: FAMOTIDINE 20 MG TABLET PO SCH ×2 (09:25→21:05)
[2021-03-22] MEDS: PANTOPRAZOLE 40 MG TABLET PO SCH (09:25)
[2021-03-22] MEDS: DEXAMETHASONE 4 MG/1 ML VIAL IV SCH (09:27)
[2021-03-22] MEDS: ENOXAPARIN 40 MG/0.4 ML SYRINGE SUBCUT SCH ×2 (09:27→21:05)
[2021-03-22] MEDS: ZINC OXIDE PASTE 113 GM TUBE TOP SCH ×2 (09:28→21:05)
[2021-03-22 09:48] LABS: Potassium 2.9 MMOL/L (3.5-5.1)
[2021-03-22] MEDS: INSULIN LISPRO 100 UNIT/ML SUBCUT SCH ×4 (10:59→21:05)
[2021-03-22] MEDS: POTASSIUM CHLORIDE RIDER 10 MEQ/100 ML PREMIX IV PRN ×5 (13:05→18:35)
[2021-03-22] MEDS: LATANOPROST 0.005% OPH SOLN 2.5 ML BOTTLE RIGHT EYE SCH (21:05)
[2021-03-22] MEDS: DONEPEZIL 10 MG TABLET PO SCH (21:05)
[2021-03-22] MEDS: AZITHROMYCIN INJ 500 MG in SODIUM CHLORIDE 0.9% 250 ML IV SCH (21:05)
[2021-03-23] MEDS: LACTATED RINGERS 1,000 ML IV SCH ×2 (02:31→22:32)
[2021-03-23 06:00] LABS: Hematocrit 26.7 VOL% (35.7-47.0); Hemoglobin 8.3 GM/DL (12.0-16.0); Immature Granulocytes % 4.2 %; Immature Granulocytes Absolute 0.19 #; Lymphocytes % 23.2 % (21.3-54.2); Mean Corpuscular HGB Conc 31.1 GM/DL (32-36); Mean Corpuscular Volume 107.7 FL (87-102); Monocytes % 11.2 % (1.7-12.7); NRBC # 0.25 10*3/uL; Neutrophils % 61.4 % (38.7-73.9); Platelet Count 47 T/CUMM (130-400); Red Blood Count 2.48 MC/CUMM (3.8-5.5); Red Cell Distribution Width 16.5 % (9.3-17.3); White Blood Count 4.5 T/CUMM (4-12)
[2021-03-23 06:44] LABS: Calcium 8.7 MG/DL (8.5-10.1); Ferritin 1103.4 ng/mL (8-252); Osmolality,Calculated 281.1 MOS/KG (273-304)
[2021-03-23 07:01] LABS: Acanthocytes 1+; Anisocytosis 1+; Hypochromasia 2+
[2021-03-23 07:02] LABS: Elliptocytes 1+; Microcytosis 1+
[2021-03-23 07:04] LABS: Platelet Estimate Decreased
[2021-03-23] MEDS: INSULIN LISPRO 100 UNIT/ML SUBCUT SCH ×3 (08:41→21:43)
[2021-03-23] MEDS: MEMANTINE 10 MG TABLET PO SCH ×2 (09:48→21:15)
[2021-03-23] MEDS: DEXAMETHASONE 4 MG/1 ML VIAL IV SCH (09:48)
[2021-03-23] MEDS: SEVELAMER CARBONATE 800 MG TABLET PO SCH ×3 (09:48→16:38)
[2021-03-23] MEDS: ENOXAPARIN 40 MG/0.4 ML SYRINGE SUBCUT SCH ×2 (09:49→21:15)
[2021-03-23] MEDS: PANTOPRAZOLE 40 MG TABLET PO SCH (09:50)
[2021-03-23] MEDS: MIDODRINE 5 MG TABLET PO SCH ×3 (09:50→21:15)
[2021-03-23] MEDS: FAMOTIDINE 20 MG TABLET PO SCH ×2 (09:50→21:15)
[2021-03-23] MEDS: levETIRAcetam 500 MG TABLET PO SCH ×2 (09:50→21:15)
[2021-03-23] MEDS: FOLIC ACID 1 MG TABLET PO SCH (09:50)
[2021-03-23] MEDS: CHOLECALCIFEROL 1,000 UNIT TABLET PO SCH (09:50)
[2021-03-23] MEDS: ASCORBIC ACID 500 MG TABLET PO SCH ×2 (09:50→21:15)
[2021-03-23] MEDS: CETIRIZINE 10 MG TABLET PO SCH (09:50)
[2021-03-23] MEDS: ZINC OXIDE PASTE 113 GM TUBE TOP SCH ×2 (09:51→21:15)
[2021-03-23] MEDS: ZINC GLUCONATE 50 MG TABLET PO SCH (11:21)
[2021-03-23] MEDS: LATANOPROST 0.005% OPH SOLN 2.5 ML BOTTLE RIGHT EYE SCH (21:15)
[2021-03-23] MEDS: DONEPEZIL 10 MG TABLET PO SCH (21:15)
[2021-03-24] MEDS: INSULIN LISPRO 100 UNIT/ML SUBCUT SCH ×4 (09:38→20:45)
[2021-03-24] MEDS: DEXAMETHASONE 4 MG/1 ML VIAL IV SCH (09:39)
[2021-03-24] MEDS: MIDODRINE 5 MG TABLET PO SCH ×3 (09:40→20:45)
[2021-03-24] MEDS: MEMANTINE 10 MG TABLET PO SCH ×2 (09:40→20:45)
[2021-03-24] MEDS: ASCORBIC ACID 500 MG TABLET PO SCH ×2 (09:40→20:45)
[2021-03-24] MEDS: ZINC GLUCONATE 50 MG TABLET PO SCH (09:40)
[2021-03-24] MEDS: PANTOPRAZOLE 40 MG TABLET PO SCH (09:40)
[2021-03-24] MEDS: ENOXAPARIN 40 MG/0.4 ML SYRINGE SUBCUT SCH ×2 (09:40→20:45)
[2021-03-24] MEDS: FOLIC ACID 1 MG TABLET PO SCH (09:40)
[2021-03-24] MEDS: CETIRIZINE 10 MG TABLET PO SCH (09:40)
[2021-03-24] MEDS: CHOLECALCIFEROL 1,000 UNIT TABLET PO SCH (09:41)
[2021-03-24] MEDS: levETIRAcetam 500 MG TABLET PO SCH ×2 (09:41→20:45)
[2021-03-24] MEDS: FAMOTIDINE 20 MG TABLET PO SCH ×2 (09:41→20:45)
[2021-03-24] MEDS: SEVELAMER CARBONATE 800 MG TABLET PO SCH ×3 (09:41→16:52)
[2021-03-24] MEDS: ZINC OXIDE PASTE 113 GM TUBE TOP SCH ×2 (09:42→20:45)
[2021-03-24] MEDS: LACTATED RINGERS 1,000 ML IV SCH (16:51)
[2021-03-24] MEDS: ALBUTEROL/IPRATROPIUM 3 ML NEB RESP TX SCH (20:05)
[2021-03-24] MEDS: LATANOPROST 0.005% OPH SOLN 2.5 ML BOTTLE RIGHT EYE SCH (20:45)
[2021-03-24] MEDS: DONEPEZIL 10 MG TABLET PO SCH (20:45)
[2021-03-25] MEDS: ALBUTEROL/IPRATROPIUM 3 ML NEB RESP TX SCH ×4 (00:35→20:26)
[2021-03-25] MEDS: DEXAMETHASONE 4 MG/1 ML VIAL IV SCH (08:27)
[2021-03-25] MEDS: ENOXAPARIN 40 MG/0.4 ML SYRINGE SUBCUT SCH ×2 (08:27→21:01)
[2021-03-25] MEDS: PANTOPRAZOLE 40 MG TABLET PO SCH (08:28)
[2021-03-25] MEDS: levETIRAcetam 500 MG TABLET PO SCH ×2 (08:28→21:01)
[2021-03-25] MEDS: FAMOTIDINE 20 MG TABLET PO SCH ×2 (08:28→21:01)
[2021-03-25] MEDS: FOLIC ACID 1 MG TABLET PO SCH (08:28)
[2021-03-25] MEDS: ASCORBIC ACID 500 MG TABLET PO SCH ×2 (08:28→21:01)
[2021-03-25] MEDS: ZINC GLUCONATE 50 MG TABLET PO SCH (08:28)
[2021-03-25] MEDS: MEMANTINE 10 MG TABLET PO SCH ×2 (08:28→21:01)
[2021-03-25] MEDS: CHOLECALCIFEROL 1,000 UNIT TABLET PO SCH (08:28)
[2021-03-25] MEDS: MIDODRINE 5 MG TABLET PO SCH ×3 (08:29→21:01)
[2021-03-25] MEDS: SEVELAMER CARBONATE 800 MG TABLET PO SCH ×3 (08:29→16:31)
[2021-03-25] MEDS: CETIRIZINE 10 MG TABLET PO SCH (08:29)
[2021-03-25] MEDS: INSULIN LISPRO 100 UNIT/ML SUBCUT SCH ×4 (10:49→21:01)
[2021-03-25] MEDS: ZINC OXIDE PASTE 113 GM TUBE TOP SCH ×2 (10:50→21:01)
[2021-03-25] MEDS: LACTATED RINGERS 1,000 ML IV SCH (11:34)
[2021-03-25] MEDS: LATANOPROST 0.005% OPH SOLN 2.5 ML BOTTLE RIGHT EYE SCH (21:01)
[2021-03-25] MEDS: DONEPEZIL 10 MG TABLET PO SCH (21:01)
[2021-03-26] MEDS: ALBUTEROL/IPRATROPIUM 3 ML NEB RESP TX SCH ×4 (01:13→20:20)
[2021-03-26] MEDS: ENOXAPARIN 40 MG/0.4 ML SYRINGE SUBCUT SCH ×2 (09:23→20:40)
[2021-03-26] MEDS: ASCORBIC ACID 500 MG TABLET PO SCH ×2 (09:24→20:40)
[2021-03-26] MEDS: levETIRAcetam 500 MG TABLET PO SCH ×2 (09:24→20:40)
[2021-03-26] MEDS: CHOLECALCIFEROL 1,000 UNIT TABLET PO SCH (09:24)
[2021-03-26] MEDS: ZINC GLUCONATE 50 MG TABLET PO SCH (09:24)
[2021-03-26] MEDS: SEVELAMER CARBONATE 800 MG TABLET PO SCH ×3 (09:25→16:24)
[2021-03-26] MEDS: FOLIC ACID 1 MG TABLET PO SCH (09:25)
[2021-03-26] MEDS: MIDODRINE 5 MG TABLET PO SCH ×3 (09:25→20:40)
[2021-03-26] MEDS: PANTOPRAZOLE 40 MG TABLET PO SCH (09:25)
[2021-03-26] MEDS: MEMANTINE 10 MG TABLET PO SCH ×2 (09:25→20:40)
[2021-03-26] MEDS: CETIRIZINE 10 MG TABLET PO SCH (09:25)
[2021-03-26] MEDS: DEXAMETHASONE 4 MG/1 ML VIAL IV SCH (09:26)
[2021-03-26] MEDS: FAMOTIDINE 20 MG TABLET PO SCH ×2 (09:26→20:40)
[2021-03-26] MEDS: INSULIN LISPRO 100 UNIT/ML SUBCUT SCH ×4 (09:27→20:40)
[2021-03-26] MEDS: ZINC OXIDE PASTE 113 GM TUBE TOP SCH ×2 (11:46→20:40)
[2021-03-26] MEDS: LATANOPROST 0.005% OPH SOLN 2.5 ML BOTTLE RIGHT EYE SCH (20:40)
[2021-03-26] MEDS: DONEPEZIL 10 MG TABLET PO SCH (20:40)
[2021-03-27] MEDS: ALBUTEROL/IPRATROPIUM 3 ML NEB RESP TX SCH ×4 (01:10→20:43)
[2021-03-27] MEDS: INSULIN LISPRO 100 UNIT/ML SUBCUT SCH ×4 (07:00→20:00)
[2021-03-27] MEDS: SEVELAMER CARBONATE 800 MG TABLET PO SCH ×3 (09:19→17:00)
[2021-03-27] MEDS: ZINC OXIDE PASTE 113 GM TUBE TOP SCH ×2 (09:19→20:00)
[2021-03-27] MEDS: DEXAMETHASONE 4 MG/1 ML VIAL IV SCH (09:19)
[2021-03-27] MEDS: MIDODRINE 5 MG TABLET PO SCH ×4 (09:20→20:00)
[2021-03-27] MEDS: PANTOPRAZOLE 40 MG TABLET PO SCH (09:20)
[2021-03-27] MEDS: ENOXAPARIN 40 MG/0.4 ML SYRINGE SUBCUT SCH (09:20)
[2021-03-27] MEDS: levETIRAcetam 500 MG TABLET PO SCH ×2 (09:20→20:00)
[2021-03-27] MEDS: FAMOTIDINE 20 MG TABLET PO SCH ×2 (09:20→20:00)
[2021-03-27] MEDS: FOLIC ACID 1 MG TABLET PO SCH (09:20)
[2021-03-27] MEDS: MEMANTINE 10 MG TABLET PO SCH ×2 (09:20→20:00)
[2021-03-27] MEDS: CHOLECALCIFEROL 1,000 UNIT TABLET PO SCH (09:21)
[2021-03-27] MEDS: ZINC GLUCONATE 50 MG TABLET PO SCH (09:21)
[2021-03-27] MEDS: CETIRIZINE 10 MG TABLET PO SCH (09:21)
[2021-03-27] MEDS: ASCORBIC ACID 500 MG TABLET PO SCH ×2 (09:21→20:00)
[2021-03-27] MEDS: DONEPEZIL 10 MG TABLET PO SCH (20:00)
[2021-03-27] MEDS: LATANOPROST 0.005% OPH SOLN 2.5 ML BOTTLE RIGHT EYE SCH (20:00)
[2021-03-28] MEDS: ALBUTEROL/IPRATROPIUM 3 ML NEB RESP TX SCH ×3 (02:05→13:19)
[2021-03-28 06:05] LABS: Basophils % 0.2 % (0.0-0.8); Eosinophils # 0.1 10*3/uL (0.0-0.87); Eosinophils % 2.3 % (0.00-10.9); Hemoglobin 8.5 GM/DL (12.0-16.0); Immature Granulocytes % 0.5 %; Immature Granulocytes Absolute 0.02 #; Lymphocytes # 0.3 10*3/uL (1.4-4.0); Lymphocytes % 6.8 % (21.3-54.2); Mean Corpuscular HGB Conc 29.3 GM/DL (32-36); Mean Corpuscular Volume 110.7 FL (87-102); Mean Platelet Volume 12.1 FL (9.6-12.0); Monocytes % 3.5 % (1.7-12.7); NRBC # 0.02 10*3/uL; Neutrophils % 86.7 % (38.7-73.9); Platelet Count 58 T/CUMM (130-400); Red Blood Count 2.62 MC/CUMM (3.8-5.5); Red Cell Distribution Width 17.7 % (9.3-17.3); White Blood Count 4.3 T/CUMM (4-12)
[2021-03-28 06:22] LABS: Calcium 8.3 MG/DL (8.5-10.1); Osmolality,Calculated 283.1 MOS/KG (273-304); Potassium 4.8 MMOL/L (3.5-5.1)
[2021-03-28 06:41] LABS: Anisocytosis Slight; Hypochromasia Slight; Platelet Estimate Decreased
[2021-03-28] MEDS: INSULIN LISPRO 100 UNIT/ML SUBCUT SCH ×2 (07:50→11:30)
[2021-03-28] MEDS: SEVELAMER CARBONATE 800 MG TABLET PO SCH ×2 (07:50→13:27)
[2021-03-28] MEDS: levETIRAcetam 500 MG TABLET PO SCH (08:00)
[2021-03-28] MEDS: MEMANTINE 10 MG TABLET PO SCH (08:00)
[2021-03-28] MEDS: FAMOTIDINE 20 MG TABLET PO SCH (08:00)
[2021-03-28] MEDS: FOLIC ACID 1 MG TABLET PO SCH (08:00)
[2021-03-28] MEDS: ZINC OXIDE PASTE 113 GM TUBE TOP SCH (08:00)
[2021-03-28] MEDS: DEXAMETHASONE 4 MG/1 ML VIAL IV SCH (08:00)
[2021-03-28] MEDS: CHOLECALCIFEROL 1,000 UNIT TABLET PO SCH (08:01)
[2021-03-28] MEDS: ASCORBIC ACID 500 MG TABLET PO SCH (08:01)
[2021-03-28] MEDS: MIDODRINE 5 MG TABLET PO SCH (08:01)
[2021-03-28] MEDS: PANTOPRAZOLE 40 MG TABLET PO SCH (08:01)
[2021-03-28] MEDS: CETIRIZINE 10 MG TABLET PO SCH (08:01)
[2021-03-28] MEDS: ZINC GLUCONATE 50 MG TABLET PO SCH (08:01)
[2021-03-28 13:27] VITALS: BP 97/60
== END 2021-03-28 15:13 | DRG 177 ==
LOC: N.2E 18:57 → SUATTDRO 18:57 → N.2E 03-27 17:43
PROVIDERS: ADMIT Internal Medicine; ATTEND Internal Medicine

== ENCOUNTER 2021-04-10 10:48 | Inpatient (IN) ==
[2021-04-10] MEDS ORDERED: SODIUM CHLORIDE 0.9% 1,000 ML IV PRN (11:31)
[2021-04-10 12:34] LABS: Albumin 1.7 G/DL (3.4-5.0); Bilirubin,Total 0.4 MG/DL (0.20-1.00); Calcium 8.1 MG/DL (8.5-10.1); Osmolality,Calculated 279.4 MOS/KG (273-304); Potassium 3.6 MMOL/L (3.5-5.1); Total Protein 5.1 G/DL (6.4-8.2)
[2021-04-10] MEDS ORDERED: ACETAMINOPHEN 325 MG TABLET PO PRN (13:38)
[2021-04-10] MEDS ORDERED: DEXTROSE 50% 25 GM/50 ML VIAL IV PRN (13:38)
[2021-04-10] MEDS ORDERED: GLUCAGON 1 MG VIAL IM PRN (13:38)
[2021-04-10] MEDS: INSULIN REGULAR 100 UNIT/ML SUBCUT SCH ×2 (17:16→20:30)
[2021-04-11] MEDS: hydrALAZINE 20 MG/1 ML VIAL IV PRN ×2 (02:01→16:14)
[2021-04-11 07:21] LABS: Basophils % 0.6 % (0.0-0.8); Eosinophils % 0.6 % (0.00-10.9); Hematocrit 38.1 VOL% (35.7-47.0); Immature Granulocytes % 1.1 %; Immature Granulocytes Absolute 0.04 #; Lymphocytes # 0.5 10*3/uL (1.4-4.0); Lymphocytes % 14.7 % (21.3-54.2); Mean Corpuscular HGB Conc 32.5 GM/DL (32-36); Mean Corpuscular Volume 94.3 FL (87-102); Monocytes % 9.3 % (1.7-12.7); Neutrophils % 73.7 % (38.7-73.9); Platelet Count 40 T/CUMM (130-400); Red Cell Distribution Width 16.7 % (9.3-17.3)
[2021-04-11 07:23] LABS: Red Blood Count 4.04 MC/CUMM (3.8-5.5); White Blood Count 3.5 T/CUMM (4-12)
[2021-04-11 07:24] LABS: Calcium 8.3 MG/DL (8.5-10.1); Hemoglobin 12.4 GM/DL (12.0-16.0); Osmolality,Calculated 275.5 MOS/KG (273-304); Potassium 3.4 MMOL/L (3.5-5.1)
[2021-04-11] MEDS: INSULIN REGULAR 100 UNIT/ML SUBCUT SCH ×4 (07:31→21:08)
[2021-04-11 08:11] LABS: Anisocytosis 2+; Band Neutrophils 12 % (0-10); Burr Cells Few; Lymphocytes 16 % (20-55); Macrocytosis 1+; Ovalocytes Few; Platelet Estimate Decreased; Segmented Neutrophils 67 % (50-85); Smudge Cells Few; Total Cells Counted 100
[2021-04-11] MEDS ORDERED: SODIUM CHLORIDE 0.9% 1,000 ML IV PRN (13:52)
[2021-04-11] MEDS: PIPERACILLIN/TAZOBACTAM 3,375 MG in SODIUM CHLORIDE 0.9% 100 ML IV SCH (14:23)
[2021-04-11] MEDS: DONEPEZIL 10 MG TABLET PO SCH (17:40)
[2021-04-11] MEDS: SEVELAMER CARBONATE 800 MG TABLET PO SCH (17:40)
[2021-04-11] MEDS: carvediloL 3.125 MG TABLET PO SCH (17:40)
[2021-04-11] MEDS: ALBUTEROL/IPRATROPIUM 3 ML NEB RESP TX SCH (19:33)
[2021-04-11] MEDS: ZINC OXIDE PASTE 113 GM TUBE TOP SCH (21:30)
[2021-04-11] MEDS: MEMANTINE 10 MG TABLET PO SCH (21:31)
[2021-04-11] MEDS: ASCORBIC ACID 500 MG TABLET PO SCH (21:31)
[2021-04-11] MEDS: levETIRAcetam 500 MG TABLET PO SCH (21:31)
[2021-04-11] MEDS: LATANOPROST 0.005% OPH SOLN 2.5 ML BOTTLE RIGHT EYE SCH (21:32)
[2021-04-12] MEDS: PIPERACILLIN/TAZOBACTAM 3,375 MG in SODIUM CHLORIDE 0.9% 100 ML IV SCH ×2 (00:05→17:54)
[2021-04-12] MEDS: ALBUTEROL/IPRATROPIUM 3 ML NEB RESP TX SCH ×4 (00:39→20:22)
[2021-04-12 05:51] LABS: INR 1.1; PT Patient Result 12.1 SECS (10.5-12.0)
[2021-04-12 05:54] LABS: Calcium 7.8 MG/DL (8.5-10.1); Osmolality,Calculated 278.3 MOS/KG (273-304); Potassium 3.5 MMOL/L (3.5-5.1)
[2021-04-12 06:05] LABS: Basophils % 0.1 % (0.0-0.8); Eosinophils % 0.1 % (0.00-10.9); Hemoglobin 10.7 GM/DL (12.0-16.0); Immature Granulocytes % 0.6 %; Immature Granulocytes Absolute 0.04 #; Lymphocytes # 0.4 10*3/uL (1.4-4.0); Lymphocytes % 5.9 % (21.3-54.2); Mean Corpuscular HGB Conc 32.4 GM/DL (32-36); Mean Corpuscular Volume 93.8 FL (87-102); Mean Platelet Volume 10.7 FL (9.6-12.0); Monocytes % 5.6 % (1.7-12.7); Neutrophils % 87.7 % (38.7-73.9); Red Blood Count 3.52 MC/CUMM (3.8-5.5); Red Cell Distribution Width 16.4 % (9.3-17.3); White Blood Count 6.8 T/CUMM (4-12)
[2021-04-12 06:09] LABS: Platelet Count 24 T/CUMM (130-400)
[2021-04-12 06:21] LABS: Band Neutrophils 4 % (0-10); Lymphocytes 3 % (20-55); Segmented Neutrophils 88 % (50-85); Total Cells Counted 100
[2021-04-12 06:22] LABS: Platelet Estimate Decreased
[2021-04-12] MEDS ORDERED: SODIUM CHLORIDE 0.9% 1,000 ML IV SCH (08:00)
[2021-04-12] MEDS: lisinopriL 20 MG TABLET PO SCH (10:03)
[2021-04-12] MEDS: levETIRAcetam 500 MG TABLET PO SCH ×2 (10:03→22:05)
[2021-04-12] MEDS: ASCORBIC ACID 500 MG TABLET PO SCH ×2 (10:03→22:05)
[2021-04-12] MEDS: CHOLECALCIFEROL 1,000 UNIT TABLET PO SCH (10:03)
[2021-04-12] MEDS: SEVELAMER CARBONATE 800 MG TABLET PO SCH ×3 (10:03→17:32)
[2021-04-12] MEDS: carvediloL 3.125 MG TABLET PO SCH ×2 (10:03→17:32)
[2021-04-12] MEDS: CETIRIZINE 10 MG TABLET PO SCH (10:04)
[2021-04-12] MEDS: FOLIC ACID 1 MG TABLET PO SCH (10:04)
[2021-04-12] MEDS: PANTOPRAZOLE 40 MG TABLET PO SCH (10:04)
[2021-04-12] MEDS: DONEPEZIL 10 MG TABLET PO SCH (10:04)
[2021-04-12] MEDS: INSULIN REGULAR 100 UNIT/ML SUBCUT SCH ×4 (10:04→22:06)
[2021-04-12] MEDS: MEMANTINE 10 MG TABLET PO SCH ×2 (10:04→22:05)
[2021-04-12] MEDS: ZINC OXIDE PASTE 113 GM TUBE TOP SCH ×2 (10:06→22:04)
[2021-04-12 12:42] LABS: Folate 8.83 NG/ML (5.38-24.0); Vitamin B12 735 PG/ML (211-911)
[2021-04-12 12:54] LABS: Total Protein 4.2 G/DL (6.4-8.2)
[2021-04-12] MEDS ORDERED: IMMUNE GLOBULIN 10% 20 GM in PREMIX 1 EACH IV ONE (15:00)
[2021-04-12] MEDS ORDERED: ZINC/COPPER/MANGANESE/SELENIUM 1 ML, MULTIVITAMIN INJ 10 ML in AMINO ACIDS/DEXT/LYTES 4... IV SCH (17:00)
[2021-04-13] MEDS: ALBUTEROL/IPRATROPIUM 3 ML NEB RESP TX SCH ×4 (00:10→19:50)
[2021-04-13] MEDS: LATANOPROST 0.005% OPH SOLN 2.5 ML BOTTLE RIGHT EYE SCH ×2 (01:28→23:03)
[2021-04-13] MEDS: PIPERACILLIN/TAZOBACTAM 3,375 MG in SODIUM CHLORIDE 0.9% 100 ML IV SCH (03:34)
[2021-04-13 06:29] LABS: Basophils % 0.2 % (0.0-0.8); Eosinophils % 0.2 % (0.00-10.9); Hematocrit 36.6 VOL% (35.7-47.0); Hemoglobin 11.4 GM/DL (12.0-16.0); Immature Granulocytes % 0.6 %; Immature Granulocytes Absolute 0.03 #; Lymphocytes # 0.4 10*3/uL (1.4-4.0); Lymphocytes % 7.2 % (21.3-54.2); Mean Corpuscular HGB Conc 31.1 GM/DL (32-36); Mean Corpuscular Volume 96.6 FL (87-102); Monocytes % 5.4 % (1.7-12.7); Neutrophils % 86.4 % (38.7-73.9); Red Blood Count 3.79 MC/CUMM (3.8-5.5); Red Cell Distribution Width 16.4 % (9.3-17.3)
[2021-04-13 06:33] LABS: Platelet Count 25 T/CUMM (130-400)
[2021-04-13 06:47] LABS: Band Neutrophils 1 % (0-10); Hypochromasia 1+; Lymphocytes 8 % (20-55); Macrocytosis 1+; Segmented Neutrophils 87 % (50-85); Total Cells Counted 100
[2021-04-13 06:48] LABS: Alanine Aminotransferase < 9 U/L (13-56); Albumin 1.3 G/DL (3.4-5.0); Alkaline Phosphatase 60 U/L (45-117); Aspartate Amino Transferase 13 U/L (0-37); Blood Urea Nitrogen 16 MG/DL (7-18); Calcium 8.5 MG/DL (8.5-10.1); Carbon Dioxide 28 MMOL/L (21-32); Estimated Glom Filtration Rate 15 ML/MIN; Glucose 59 MG/DL (74-106); Osmolality,Calculated 273.7 MOS/KG (273-304); Ovalocytes Slight; Platelet Estimate Decreased; Potassium 3.5 MMOL/L (3.5-5.1); Sodium 138 MMOL/L (136-145); Total Protein 5.4 G/DL (6.4-8.2)
[2021-04-13] MEDS ORDERED: SODIUM CHLORIDE 0.9% 1,000 ML IV SCH (08:00)
[2021-04-13] MEDS: carvediloL 3.125 MG TABLET PO SCH ×2 (09:37→17:40)
[2021-04-13] MEDS: DONEPEZIL 10 MG TABLET PO SCH (09:37)
[2021-04-13] MEDS: FOLIC ACID 1 MG TABLET PO SCH (09:37)
[2021-04-13] MEDS: PANTOPRAZOLE 40 MG TABLET PO SCH (09:37)
[2021-04-13] MEDS: lisinopriL 20 MG TABLET PO SCH (09:37)
[2021-04-13] MEDS: levETIRAcetam 500 MG TABLET PO SCH ×2 (09:37→23:02)
[2021-04-13] MEDS: MEMANTINE 10 MG TABLET PO SCH ×2 (09:37→23:02)
[2021-04-13] MEDS: INSULIN REGULAR 100 UNIT/ML SUBCUT SCH ×4 (09:37→23:03)
[2021-04-13] MEDS: SEVELAMER CARBONATE 800 MG TABLET PO SCH ×3 (09:37→17:41)
[2021-04-13] MEDS: ZINC OXIDE PASTE 113 GM TUBE TOP SCH ×2 (09:37→23:02)
[2021-04-13] MEDS: CETIRIZINE 10 MG TABLET PO SCH (09:38)
[2021-04-13] MEDS: CHOLECALCIFEROL 1,000 UNIT TABLET PO SCH (09:38)
[2021-04-13] MEDS: ASCORBIC ACID 500 MG TABLET PO SCH ×2 (09:38→23:02)
[2021-04-13] MEDS: cefTRIAXone 1,000 MG in SODIUM CHLORIDE 0.9% 100 ML IV SCH (15:30)
[2021-04-13] MEDS: predniSONE 20 MG TABLET PO SCH (17:40)
[2021-04-14] MEDS: ALBUTEROL/IPRATROPIUM 3 ML NEB RESP TX SCH ×4 (00:59→19:07)
[2021-04-14 05:27] LABS: Hemoglobin 11.5 GM/DL (12.0-16.0); Immature Granulocytes % 0.4 %; Immature Granulocytes Absolute 0.02 #; Lymphocytes # 0.3 10*3/uL (1.4-4.0); Lymphocytes % 5.6 % (21.3-54.2); Mean Corpuscular HGB Conc 31.9 GM/DL (32-36); Mean Corpuscular Volume 95.7 FL (87-102); Monocytes % 2.6 % (1.7-12.7); Neutrophils % 91.4 % (38.7-73.9); Red Blood Count 3.76 MC/CUMM (3.8-5.5); Red Cell Distribution Width 15.9 % (9.3-17.3); White Blood Count 4.6 T/CUMM (4-12)
[2021-04-14 05:41] LABS: Calcium 8.2 MG/DL (8.5-10.1); Osmolality,Calculated 277.7 MOS/KG (273-304); Potassium 3.3 MMOL/L (3.5-5.1)
[2021-04-14 05:53] LABS: Platelet Count 21 T/CUMM (130-400)
[2021-04-14 06:34] LABS: Band Neutrophils 2 % (0-10); Hypochromasia 1+; Lymphocytes 3 % (20-55); Segmented Neutrophils 91 % (50-85); Total Cells Counted 100
[2021-04-14 06:35] LABS: Macrocytosis 1+; Ovalocytes Slight; Platelet Estimate Decreased
[2021-04-14] MEDS: cefTRIAXone 1,000 MG in SODIUM CHLORIDE 0.9% 100 ML IV SCH (09:30)
[2021-04-14] MEDS: ZINC OXIDE PASTE 113 GM TUBE TOP SCH ×2 (09:35→22:03)
[2021-04-14] MEDS: CETIRIZINE 10 MG TABLET PO SCH (09:39)
[2021-04-14] MEDS: DONEPEZIL 10 MG TABLET PO SCH (09:39)
[2021-04-14] MEDS: SEVELAMER CARBONATE 800 MG TABLET PO SCH ×3 (09:39→17:50)
[2021-04-14] MEDS: MEMANTINE 10 MG TABLET PO SCH ×2 (09:39→22:03)
[2021-04-14] MEDS: lisinopriL 20 MG TABLET PO SCH (09:39)
[2021-04-14] MEDS: levETIRAcetam 500 MG TABLET PO SCH ×2 (09:39→22:02)
[2021-04-14] MEDS: CHOLECALCIFEROL 1,000 UNIT TABLET PO SCH (09:39)
[2021-04-14] MEDS: PANTOPRAZOLE 40 MG TABLET PO SCH (09:40)
[2021-04-14] MEDS: FOLIC ACID 1 MG TABLET PO SCH (09:40)
[2021-04-14] MEDS: predniSONE 20 MG TABLET PO SCH (09:40)
[2021-04-14] MEDS: carvediloL 3.125 MG TABLET PO SCH ×2 (09:40→18:40)
[2021-04-14] MEDS: ASCORBIC ACID 500 MG TABLET PO SCH ×2 (09:40→22:02)
[2021-04-14] MEDS: INSULIN REGULAR 100 UNIT/ML SUBCUT SCH ×4 (10:26→22:02)
[2021-04-14] MEDS ORDERED: SODIUM CHLORIDE 0.9% 1,000 ML IV PRN (14:12)
[2021-04-15] MEDS: ALBUTEROL/IPRATROPIUM 3 ML NEB RESP TX SCH ×4 (00:51→19:22)
[2021-04-15] MEDS: LATANOPROST 0.005% OPH SOLN 2.5 ML BOTTLE RIGHT EYE SCH ×2 (02:22→21:43)
[2021-04-15 08:24] LABS: Hematocrit 28.2 VOL% (35.7-47.0); Immature Granulocytes % 0.7 %; Immature Granulocytes Absolute 0.04 #; Lymphocytes # 0.5 10*3/uL (1.4-4.0); Lymphocytes % 9.8 % (21.3-54.2); Mean Corpuscular HGB Conc 31.6 GM/DL (32-36); Mean Corpuscular Volume 98.3 FL (87-102); Mean Platelet Volume 11.4 FL (9.6-12.0); Monocytes % 7.4 % (1.7-12.7); Neutrophils % 82.1 % (38.7-73.9); Red Cell Distribution Width 15.9 % (9.3-17.3); White Blood Count 5.5 T/CUMM (4-12)
[2021-04-15 08:33] LABS: Hemoglobin 8.9 GM/DL (12.0-16.0); Platelet Count 124 T/CUMM (130-400); Red Blood Count 2.87 MC/CUMM (3.8-5.5)
[2021-04-15 08:33] LABS: Total Protein (Chem) 4.2 G/DL (6.4-8.3)
[2021-04-15] MEDS: INSULIN REGULAR 100 UNIT/ML SUBCUT SCH ×4 (08:43→21:42)
[2021-04-15 08:46] LABS: Hypochromasia 1+; Lymphocytes 3 % (20-55); Macrocytosis 1+; Segmented Neutrophils 85 % (50-85); Total Cells Counted 100
[2021-04-15 08:47] LABS: Platelet Estimate Adequate
[2021-04-15 08:51] LABS: Calcium 8.3 MG/DL (8.5-10.1); Osmolality,Calculated 281.4 MOS/KG (273-304)
[2021-04-15] MEDS ORDERED: SODIUM CHLORIDE 0.9% 500 ML IV SCH (09:15)
[2021-04-15] MEDS ORDERED: ETOMIDATE 20 MG/10 ML VIAL IV ONE (09:21)
[2021-04-15] MEDS ORDERED: propofoL 200 MG/20 ML VIAL IV ONE (09:21)
[2021-04-15] MEDS ORDERED: LIDOCAINE 2% 5 ML VIAL ONE (09:21)
[2021-04-15 10:17] LABS: Albumin (SPE) 2.3 G/DL (3.2-5.3); Albumin (SPE) Rel % 55.3 %; Alpha 1 (SPE) 0.2 G/DL (0.1-0.4); Alpha 1 (SPE) Rel % 4.8 %; Alpha 2 (SPE) 0.4 G/DL (0.4-1.0); Alpha 2 (SPE) Rel % 8.7 %; Beta (SPE) 0.4 G/DL (0.5-1.1); Beta (SPE) Rel % 10.2 %
[2021-04-15 10:22] LABS: Gamma (SPE) 0.9 G/DL (0.7-1.7)
[2021-04-15] MEDS: cefTRIAXone 1,000 MG in SODIUM CHLORIDE 0.9% 100 ML IV SCH (11:04)
[2021-04-15] MEDS: SEVELAMER CARBONATE 800 MG TABLET PO SCH ×3 (11:21→17:25)
[2021-04-15] MEDS: carvediloL 3.125 MG TABLET PO SCH ×2 (11:21→17:25)
[2021-04-15] MEDS: FOLIC ACID 1 MG TABLET PO SCH (11:22)
[2021-04-15] MEDS: DONEPEZIL 10 MG TABLET PO SCH (11:22)
[2021-04-15] MEDS: ZINC OXIDE PASTE 113 GM TUBE TOP SCH ×2 (11:22→21:40)
[2021-04-15] MEDS: levETIRAcetam 500 MG TABLET PO SCH ×2 (11:22→21:40)
[2021-04-15] MEDS: MEMANTINE 10 MG TABLET PO SCH ×2 (11:22→21:42)
[2021-04-15] MEDS: ASCORBIC ACID 500 MG TABLET PO SCH ×2 (11:23→21:42)
[2021-04-15] MEDS: CETIRIZINE 10 MG TABLET PO SCH (11:23)
[2021-04-15] MEDS: PANTOPRAZOLE 40 MG TABLET PO SCH (11:23)
[2021-04-15] MEDS: lisinopriL 20 MG TABLET PO SCH (11:23)
[2021-04-15] MEDS: CHOLECALCIFEROL 1,000 UNIT TABLET PO SCH (11:23)
[2021-04-15] MEDS: predniSONE 20 MG TABLET PO SCH (11:23)
[2021-04-16] MEDS: ALBUTEROL/IPRATROPIUM 3 ML NEB RESP TX SCH ×4 (00:40→19:50)
[2021-04-16 06:55] LABS: Basophils % 0.2 % (0.0-0.8); Eosinophils % 0.4 % (0.00-10.9); Hemoglobin 10.8 GM/DL (12.0-16.0); Immature Granulocytes % 0.4 %; Immature Granulocytes Absolute 0.02 #; Lymphocytes # 0.5 10*3/uL (1.4-4.0); Lymphocytes % 11.3 % (21.3-54.2); Mean Corpuscular HGB Conc 32.7 GM/DL (32-36); Mean Corpuscular Volume 95.4 FL (87-102); Monocytes % 9.7 % (1.7-12.7); Red Blood Count 3.46 MC/CUMM (3.8-5.5); White Blood Count 4.8 T/CUMM (4-12)
[2021-04-16 07:00] LABS: Platelet Count 81 T/CUMM (130-400)
[2021-04-16 07:15] LABS: Eosinophils 1 % (0-10); Hypochromasia 1+; Lymphocytes 10 % (20-55); Microcytosis 1+; Ovalocytes Slight; Platelet Estimate Decreased; Segmented Neutrophils 84 % (50-85); Total Cells Counted 100
[2021-04-16 07:16] LABS: Alanine Aminotransferase 10 U/L (13-56); Albumin 1.4 G/DL (3.4-5.0); Alkaline Phosphatase 69 U/L (45-117); Aspartate Amino Transferase 13 U/L (0-37); Bilirubin,Total < 0.39 MG/DL (0.20-1.00); Blood Urea Nitrogen 27 MG/DL (7-18); Calcium 8.1 MG/DL (8.5-10.1); Carbon Dioxide 27 MMOL/L (21-32); Estimated Glom Filtration Rate 14 ML/MIN; Glucose 91 MG/DL (74-106); Osmolality,Calculated 279.7 MOS/KG (273-304); Potassium 2.9 MMOL/L (3.5-5.1); Sodium 138 MMOL/L (136-145); Total Protein 4.7 G/DL (6.4-8.2)
[2021-04-16] MEDS: INSULIN REGULAR 100 UNIT/ML SUBCUT SCH ×4 (08:13→20:30)
[2021-04-16 09:47] LABS: Immuno Free Light Chain Kappa 1.24 MG/DL (0.33-1.94); Immuno Free Light Chain Lambda 8.3 MG/DL (0.57-2.63); Immuno Free Light Chain Ratio 0.15 MG/DL (0.26-1.65)
[2021-04-16] MEDS: carvediloL 3.125 MG TABLET PO SCH ×2 (11:53→17:58)
[2021-04-16] MEDS: SEVELAMER CARBONATE 800 MG TABLET PO SCH ×3 (11:54→17:53)
[2021-04-16 14:09] LABS: Immunoglobulin A (Chem) 201 MG/DL (70-400); Immunoglobulin G (Chem) 791 MG/DL (700-1600); Immunoglobulin M (Chem) 72 MG/DL (40-230)
[2021-04-16] MEDS: DEXTROSE 5% 1,000 ML IV SCH (14:09)
[2021-04-16] MEDS: cefTRIAXone 1,000 MG in SODIUM CHLORIDE 0.9% 100 ML IV SCH (14:10)
[2021-04-16] MEDS: CETIRIZINE 10 MG TABLET PO SCH (14:29)
[2021-04-16] MEDS: lisinopriL 20 MG TABLET PO SCH (14:29)
[2021-04-16] MEDS: ASCORBIC ACID 500 MG TABLET PO SCH ×2 (14:29→20:31)
[2021-04-16] MEDS: CHOLECALCIFEROL 1,000 UNIT TABLET PO SCH (14:29)
[2021-04-16] MEDS: predniSONE 20 MG TABLET PO SCH (14:29)
[2021-04-16] MEDS: DONEPEZIL 10 MG TABLET PO SCH (14:29)
[2021-04-16] MEDS: OMEPRAZOLE ODT 20 MG TABLET PO SCH ×2 (14:30→20:31)
[2021-04-16] MEDS: MEMANTINE 10 MG TABLET PO SCH ×2 (14:30→20:31)
[2021-04-16] MEDS: FOLIC ACID 1 MG TABLET PO SCH (14:32)
[2021-04-16] MEDS: levETIRAcetam LIQUID 100 MG/ML 30 ML/BOTTLE PO SCH ×2 (14:33→20:31)
[2021-04-16] MEDS: ZINC OXIDE PASTE 113 GM TUBE TOP SCH ×2 (14:34→20:30)
[2021-04-16] MEDS: POTASSIUM CHLORIDE RIDER 10 MEQ/100 ML PREMIX IV PRN ×4 (14:43→18:02)
[2021-04-16] MEDS ORDERED: POTASSIUM BICARB EFFERVESCENT 20 MEQ TAB.EFF PO ONE (15:00)
[2021-04-16] MEDS: LATANOPROST 0.005% OPH SOLN 2.5 ML BOTTLE RIGHT EYE SCH (20:31)
[2021-04-17] MEDS: ALBUTEROL/IPRATROPIUM 3 ML NEB RESP TX SCH ×4 (00:02→19:09)
[2021-04-17] MEDS: POTASSIUM CHLORIDE RIDER 10 MEQ/100 ML PREMIX IV PRN (00:30)
[2021-04-17 06:34] LABS: Basophils % 0.2 % (0.0-0.8); Hematocrit 34.7 VOL% (35.7-47.0); Immature Granulocytes % 0.6 %; Immature Granulocytes Absolute 0.03 #; Lymphocytes # 0.5 10*3/uL (1.4-4.0); Lymphocytes % 8.8 % (21.3-54.2); Mean Corpuscular HGB Conc 31.7 GM/DL (32-36); Mean Corpuscular Volume 96.4 FL (87-102); Mean Platelet Volume 12.8 FL (9.6-12.0); Monocytes % 7.6 % (1.7-12.7); Neutrophils % 82.8 % (38.7-73.9); Red Cell Distribution Width 15.9 % (9.3-17.3); White Blood Count 5.1 T/CUMM (4-12)
[2021-04-17 06:46] LABS: Platelet Count 66 T/CUMM (130-400)
[2021-04-17 06:53] LABS: Osmolality,Calculated 272.2 MOS/KG (273-304); Potassium 3.9 MMOL/L (3.5-5.1)
[2021-04-17 06:56] LABS: Band Neutrophils 1 % (0-10); Lymphocytes 3 % (20-55); Segmented Neutrophils 87 % (50-85); Total Cells Counted 100
[2021-04-17 06:57] LABS: Hypochromasia 1+; Microcytosis 1+; Ovalocytes Slight; Platelet Estimate Decreased
[2021-04-17] MEDS: DEXTROSE 5% 1,000 ML IV SCH ×2 (08:49→13:34)
[2021-04-17] MEDS: cefTRIAXone 1,000 MG in SODIUM CHLORIDE 0.9% 100 ML IV SCH (08:50)
[2021-04-17] MEDS: INSULIN REGULAR 100 UNIT/ML SUBCUT SCH ×3 (08:50→15:32)
[2021-04-17] MEDS: SEVELAMER CARBONATE 800 MG TABLET PO SCH ×3 (08:53→17:06)
[2021-04-17] MEDS: FOLIC ACID 1 MG TABLET PO SCH (08:53)
[2021-04-17] MEDS: lisinopriL 20 MG TABLET PO SCH (08:53)
[2021-04-17] MEDS: CHOLECALCIFEROL 1,000 UNIT TABLET PO SCH (08:53)
[2021-04-17] MEDS: DONEPEZIL 10 MG TABLET PO SCH (08:53)
[2021-04-17] MEDS: carvediloL 3.125 MG TABLET PO SCH ×2 (08:54→17:06)
[2021-04-17] MEDS: CETIRIZINE 10 MG TABLET PO SCH (08:54)
[2021-04-17] MEDS: OMEPRAZOLE ODT 20 MG TABLET PO SCH (08:54)
[2021-04-17] MEDS: MEMANTINE 10 MG TABLET PO SCH (08:54)
[2021-04-17] MEDS: predniSONE 20 MG TABLET PO SCH (08:54)
[2021-04-17] MEDS: ASCORBIC ACID 500 MG TABLET PO SCH (08:54)
[2021-04-17] MEDS: ZINC OXIDE PASTE 113 GM TUBE TOP SCH (08:55)
[2021-04-17] MEDS: levETIRAcetam LIQUID 100 MG/ML 30 ML/BOTTLE PO SCH (08:58)
[2021-04-17 16:01] VITALS: BP 108/45
== END 2021-04-17 19:50 | disposition hospice, home (50) | DRG 813 ==
LOC: EDUNIT# → N.EDINP 10:48 → N.ED 10:48 → SUATTDRO 13:38 → N.5E 14:53 → SUATTDRO 04-12 12:46
PROVIDERS: ADMIT Internal Medicine Geriatric Medicine; ATTEND Internal Medicine